=== PATIENT | female | born 1975 | race Caucasian/White ===

== ENCOUNTER → 2023-05-27 | Outpatient (CLI) | payer MEDICAID ==
[2023-05-27 16:32] VITALS: BP 131/89; PULSE 71; TEMP 98; BMI 45.4
--- NOTE | 2023-05-27 17:04 | P.HPBAR ---
Bariatric H&P - History & Physicial H&P Date: 05/27/23 History & Physicial: Visit/CC: new patient Patient initial contact: Initial weight: Initial weight in pounds: Height: 5 ft 4.25 in Initial BMI: Last weight: Current weight: 121.109 kg Current weight in pounds: 267.00 Current BMI: 45.4 [place] body weight (based on NIH guidelines): 54.998 kg Excess body weight loss: The patient is a 48 year-old F who presents for Bariatric Assessment. She has chronic back pain and takes motrin. She is present with her mother. She is looking into gastric bypass for heartburn and reflux. Has hip, knee, ankle. Bilateral feet swelling. She feels fatigued in morning. No prior sleep apnea. No dysphagia. GERD present for over 5 years without improvement with prescription MVI. EGD in past. She has gallbladder gone. Pepcid and carafate. No stomach, esophagus. EGD and colon is advised. Colon screen is due. Past Medical History Past Medical History: Thyroid Disorder Additional Past Medical History / Comment(s): hypothyroid History of Any Multi-Drug Resistant Organisms: None Reported Past Surgical History: Cholecystectomy, Hysterectomy Additional Past Surgical History / Comment(s): laparoscopy Past Anesthesia/Blood Transfusion Reactions: Previous Problems w/ Anesthesia, Motion Sickness Additional Past Anesthesia/Blood Transfusion Reaction / Comm: hypotension and gas pains after laparoscopy, nausea after cholecystectomy Past Psychological History: No Psychological Hx Reported Smoking Status: Never smoker Past Alcohol Use History: Rare Past Drug Use History: None Reported Surgical - Exam Vital Signs Temp Pulse BP 98 F 71 131/89 05/27/23 16:16 05/27/23 16:16 05/27/23 16:16 Bariatric Checklist Checklist: Plan: Checklist: EGD: 1. Hiatal hernia: 2. H. Pylori: HgbA1c: Vitamin D: Smoking: Primary care physician referral: Dr. Herndon Psychiatry clearance: Cardiology clearance: Sleep study: Diet journal: VTE risk score: VTE risk level: Rehab needs at discharge:
== END ==
LOC: BARWHC3 15:12
PROVIDERS: ATTEND Surgery Plastic and Reconstructive Surgery
DX: Z53.9 Procedure and treatment not carried out, unspecified reason (principal)
CPT/HCPCS: 99202

== ENCOUNTER 2023-06-22 07:31 | Day surgery (SDC) | payer MEDICAID ==
--- NOTE | 2023-06-22 05:17 | P.GSHP ---
History of Present Illness H&P Date: 06/22/23 CHIEF COMPLAINT: GERD and colon screen HISTORY OF PRESENT ILLNESS: The patient is a 48-year-old female who presents with gastroesophageal reflux disease and need for colon screen. Upper and lower endoscopy were offered for further evaluation and management. PAST MEDICAL HISTORY: Please see list. PAST SURGICAL HISTORY: Please see list. MEDICATIONS: Please see list. ALLERGIES: Please see list. SOCIAL HISTORY: No illicit drug use FAMILY HISTORY: No reports of Crohn disease or ulcerative colitis. REVIEW OF ORGAN SYSTEMS: CONSTITUTIONAL: No reports of fevers or chills. GI: Denies any blood in stools or constipation. PHYSICAL EXAM: VITAL SIGNS: Stable GENERAL: Well-developed pleasant in no acute distress. HEENT: No scleral icterus. Extraocular movements grossly intact. Moist buccal mucosa. NECK: Supple without lymphadenopathy. CHEST: Unlabored respirations. Equal bilateral excursions. CARDIOVASCULAR: Regular rate and rhythm. Distal 2+ pulses. ABDOMEN: Soft, nondistended. MUSCULOSKELETAL: No clubbing, cyanosis, or edema. ASSESSMENT: 1. Gastroesophageal reflux disease 2. Colon screen. PLAN: 1. Recommend proceeding with an upper and lower endoscopy Past Medical History Past Medical History: COPD, GERD/Reflux, Hyperlipidemia, Thyroid Disorder Additional Past Medical History / Comment(s): hypothyroid, hx of palpitations. has worn holter monitor. chronic back pain. History of Any Multi-Drug Resistant Organisms: None Reported Past Surgical History: Cholecystectomy, Hysterectomy Additional Past Surgical History / Comment(s): laparoscopy, Past Anesthesia/Blood Transfusion Reactions: Previous Problems w/ Anesthesia, Motion Sickness, Postoperative Nausea & Vomiting (PONV) Additional Past Anesthesia/Blood Transfusion Reaction / Comment(s): hypotension and gas pains after laparoscopy, nausea after cholecystectomy Smoking Status: Never smoker - Past Family History Father Family Medical History: CVA/TIA, Diabetes Mellitus, Hypertension Mother Family Medical History: Thyroid Disorder Additional Family Medical History / Comment(s): grandmother uterine and breast cancer Medications and Allergies Home Medications Medication Instructions Recorded Confirmed Type Acetaminophen Tab [Tylenol Tab] 500 mg PO BID 05/27/23 06/19/23 History Aspirin EC [Ecotrin Low Dose] 81 mg PO DAILY 05/27/23 06/19/23 History Aydlett Shield 1 capsule PO DAILY 05/27/23 06/19/23 History Cetirizine HCl [Zyrtec] 10 mg PO DAILY 05/27/23 06/19/23 History Cholecalciferol (Vitamin D3) 300 mcg PO DAILY 05/27/23 06/19/23 History [Vitamin D3 (3000 Iu)] Docusate [Colace] 2 tab PO DAILY 05/27/23 06/19/23 History Famotidine [Pepcid] 20 mg PO BID 05/27/23 06/19/23 History Ibuprofen [Motrin] 600 mg PO BID 05/27/23 06/19/23 History Menofit 2 capsule PO DAILY 05/27/23 06/19/23 History Sucralfate [Carafate] 1 gm PO BID 05/27/23 06/19/23 History Thyroid,Pork [Registered Nurse Maternity Thyroid 120] 150 mg PO DAILY 05/27/23 06/19/23 History Allergies Allergy/AdvReac Type Severity Reaction Status Date / Time adhesive tape Allergy Itching Verified 06/19/23 09:08 latex Allergy Dyspnea Verified 06/19/23 09:08 paroxetine [From Paxil] Allergy muscle Verified 06/19/23 09:08 tetany amoxicillin AdvReac not Verified 06/19/23 09:08 effective oxycodone [From OxyContin] AdvReac Nausea Verified 06/19/23 09:08
[2023-06-22] MEDS: LACTATED RINGERS 1,000 ML IV SCH ×2 (08:11→08:57)
[2023-06-22 08:24] VITALS: RESP 16; TEMP 98.5
[2023-06-22] MEDS ORDERED: PROPOFOL 10 MG/ML 20 ML VIAL IV ONE (08:58)
[2023-06-22] MEDS ORDERED: LIDOCAINE 1% INJ 10MG/ML (20 ML MDV) ONE (08:58)
[2023-06-22] MEDS ORDERED: fentaNYL (PF) 50 MCG/ML 2 ML AMP ONE (08:58)
[2023-06-22] MEDS ORDERED: MIDAZOLAM 2 MG/2 ML VIAL ONE (08:58)
--- NOTE | 2023-06-22 09:22 | P.PCN ---
Date of Procedure: 06/22/23 Description of Procedure: PREOPERATIVE DIAGNOSIS: Gastroesophageal reflux disease. Morbid obesity. POSTOPERATIVE DIAGNOSIS: Gastroesophageal reflux disease. Morbid obesity. Gastritis. Diaphragmatic hiatal hernia OPERATION: Esophagogastroduodenoscopy with biopsies along esophagus, antrum and duodenum SURGEON: Danya Morton MD ANESTHESIA: MAC. INDICATIONS: The patient is a 46-year-old female who presents with reflux disease. Benefits and risks of the procedure were described. Informed consent was obtained. DESCRIPTION: The patient was brought into the endoscopy suite and laid in the left lateral decubitus position. An Olympus gastroscope was passed along the posterior oropharynx down to the distal esophagus where the squamocolumnar junction was encountered at 40 cm from the incisors. The stomach was entered and bile reflux was found. Additional findings are listed below. Biopsies with cold forceps were obtained of the antrum. The first through third portion of the duodenum was examined. Retroflexion of the scope confirmed Hill grade 4 lower esophageal valve. The squamocolumnar junction demonstrated LA grade B erosive esophagitis. The stomach was desufflated. The patient tolerated the procedure well. FINDINGS: Squamocolumnar junction 35 cm from the incisors. Diaphragmatic hiatus at 40 cm. Hiatal hernia, 5 cm, sliding type Hill grade 4 lower esophageal valve. LA grade B erosive esophagitis with biopsies obtained Biopsies obtained of the duodenum. Chronic gastritis with biopsies obtained. Presence of bile reflux RECOMMENDATIONS: Recommend antireflux operation
--- NOTE | 2023-06-22 09:24 | P.PCN ---
Date of Procedure: 06/22/23 Description of Procedure: PREOPERATIVE DIAGNOSIS: Colonoscopy screening. POSTOPERATIVE DIAGNOSIS: Poor prep Chronic constipation OPERATION: Colonoscopy to the rectum Exam under anesthesia, rectum SURGEON: Danya Morton MD. ANESTHESIA: MAC. INDICATIONS: The patient is a 48-year-old female who presents for colonoscopy screening. Benefits and risks were described and informed consent was obtained. DESCRIPTION OF PROCEDURE: The patient had undergone Sutab prep. She had been brought into the operating room and laid in the left lateral decubitus position. After adequate intravenous sedation, the rectum was examined with 2% lidocaine jelly. External hemorrhoids were encountered. The rectal tone was loose. No lesions were palpated in the rectal vault. An Olympus colonoscope was advanced along the rectum. Moderate solid stool was identified obstructive view of the scope. The procedure was d iscontinued. The colon was desufflated. The patient had tolerated the procedure well. Withdrawal time was over 6 minutes. FINDINGS: [place]ch[place] preparation quality scale 5 (1-5) Inconclusive due to poor prep RECOMMENDATIONS: Recommend extended colonoscopy prep, 3 days Plan - Discharge Summary Discharge Rx Participant: No New Discharge Prescriptions: Continue Sucralfate [Carafate] 1 gm PO BID Menofit 2 capsule PO DAILY Ibuprofen [Motrin] 600 mg PO BID Famotidine [Pepcid] 20 mg PO BID Cholecalciferol (Vitamin D3) [Vitamin D3 (3000 Iu)] 300 mcg PO DAILY Cetirizine HCl [Zyrtec] 10 mg PO DAILY Felicia Shield 1 capsule PO DAILY Aspirin EC [Ecotrin Low Dose] 81 mg PO DAILY Thyroid,Pork [Tanbark Laborer Thyroid] 150 mg PO DAILY Acetaminophen Tab [Tylenol] 500 mg PO BID Docusate [Colace] 2 tab PO DAILY Discharge Medication List Acetaminophen Tab [Tylenol] 500 mg PO BID 05/27/23 [History] Aspirin EC [Ecotrin Low Dose] 81 mg PO DAILY 05/27/23 [History] Te[place]y Shield 1 capsule PO DAILY 05/27/23 [History] Cetirizine HCl [Zyrtec] 10 mg PO DAILY 05/27/23 [History] Cholecalciferol (Vitamin D3) [Vitamin D3 (3000 Iu)] 300 mcg PO DAILY 05/27/23 [History] Docusate [Colace] 2 tab PO DAILY 05/27/23 [History] Famotidine [Pepcid] 20 mg PO BID 05/27/23 [History] Ibuprofen [Motrin] 600 mg PO BID 05/27/23 [History] Menofit 2 capsule PO DAILY 05/27/23 [History] Sucralfate [Carafate] 1 gm PO BID 05/27/23 [History] Thyroid,Pork [Tanbark Laborer Thyroid] 150 mg PO DAILY 05/27/23 [History] Follow up [facility]ment(s[facility] [place] [facility] - [facility] Patient Instructions/Handouts: Hiatal Hernia (GEN), Constipation (ED) Activity/Diet/Wound Care/Special Instructions: Recommend colonoscopy Discharge Disposition: HOME SELF-CARE
[2023-06-22] MEDS ORDERED: ALBUTEROL NEBULIZED 2.5 MG/3 ML INHALATION ONE (09:35)
[2023-06-22 10:03] VITALS: BP 121/61; PULSE 70
== END 2023-06-22 10:51 | disposition home or self-care (01) ==
LOC: ORWHC2ENDO 07:31
PROVIDERS: ATTEND Surgery Plastic and Reconstructive Surgery
DX: Z12.11 Encounter for screening for malignant neoplasm of colon (principal); K29.50 Unspecified chronic gastritis without bleeding; K21.00 Gastro-esophageal reflux disease with esophagitis, without bleeding; K59.09 Other constipation; K64.4 Residual hemorrhoidal skin tags; E66.01 Morbid (severe) obesity due to excess calories; K44.9 Diaphragmatic hernia without obstruction or gangrene; J44.9 Chronic obstructive pulmonary disease, unspecified; E78.5 Hyperlipidemia, unspecified; E03.9 Hypothyroidism, unspecified; G89.29 Other chronic pain; Z90.49 Acquired absence of other specified parts of digestive tract; Z90.710 Acquired absence of both cervix and uterus; Z82.3 Family history of stroke; Z83.3 Family history of diabetes mellitus; Z82.49 Family history of ischemic heart disease and other diseases of the circulatory system; Z80.3 Family history of malignant neoplasm of breast; Z83.49 Family history of other endocrine, nutritional and metabolic diseases; Z79.82 Long term (current) use of aspirin; Z79.890 Hormone replacement therapy; Z91.040 Latex allergy status; Z91.048 Other nonmedicinal substance allergy status; Z88.0 Allergy status to penicillin; Z88.5 Allergy status to narcotic agent; Z79.899 Other long term (current) drug therapy
CPT/HCPCS: 88305; 88342; 43239; G0121; J2250; J2001; J3010; J2704

== ENCOUNTER → 2023-06-22 | Outpatient (CLI) | payer MEDICAID ==
[2023-06-22 12:21] LABS: INR 0.9 (<1.2); Partial Thromboplastin Time 25.3 sec (22.0-30.0); Prothrombin Time 10.3 sec (10.0-12.5)
[2023-06-22 15:51] LABS: HCT 38.2 % (37.2-46.3); HGB 12.4 g/dL (12.0-15.0); MCH 29.1 pg (27.0-32.0); MCHC 32.5 g/dL (32.0-37.0); MCV 89.7 FL (80.0-97.0); Mean Platelet Volume 9.4 FL (9.5-12.2); NRBC Per 100 WBC 0 X 10*3/uL (0.00-0.01); Platelet Count 278 X 10*3/uL (140-440); RBC 4.26 X 10*6/uL (4.10-5.20); RDW 12.6 % (11.5-14.5); WBC 3.74 X 10*3/uL (4.50-10.00)
[2023-06-22 17:04] LABS: Prealbumin 22.3 mg/dL (18.0-42.0)
[2023-06-22 17:24] LABS: % Iron Saturation 15.12 (12.00-45.00); ALT 37 U/L (8-44); AST 24 U/L (13-35); Albumin 4.4 g/dL (3.8-4.9); Albumin/Globulin Ratio 1.76 Ratio (1.60-3.17); Alkaline Phosphatase 107 U/L (41-126); BUN/Creat Ratio 13.43 Ratio (12.00-20.00); Blood Urea Nitrogen 9.4 mg/dL (9.0-27.0); Calcium 10.1 mg/dL (8.7-10.3); Carbon Dioxide 24.6 mmol/L (21.6-31.8); Chloride 107 mmol/L (96-109); Chol/HDL Ratio 3.84 Ratio; Ferritin 74.9 ng/mL (10.0-291.0); Globulin 2.5 g/dL (1.6-3.3); Glucose 108 mg/dL (70-110); Iron 52 UG/DL (50-170); LDL Cholesterol,Calculated 119.1 mg/dL (0.0-131.0); Phosphorus 3.6 mg/dL (2.4-5.1); Sodium 144 mmol/L (135-145); Total Bilirubin <0.2 mg/dL (0.3-1.2); Total Iron Binding Capacity 344 UG/DL (228-460); Total Protein 6.9 g/dL (6.2-8.2)
[2023-06-23 10:43] LABS: Zinc, Serum 90 ug/dL (60-130)
[2023-06-24 08:00] LABS: Vitamin A 46 ug/dL (38-106)
== END | disposition home or self-care (01) ==
LOC: LABWHC1 10:49
PROVIDERS: ATTEND Surgery Plastic and Reconstructive Surgery
DX: E66.01 Morbid (severe) obesity due to excess calories (principal); E89.1 Postprocedural hypoinsulinemia; D50.8 Other iron deficiency anemias; E44.0 Moderate protein-calorie malnutrition; E55.9 Vitamin D deficiency, unspecified; Z71.51 Drug abuse counseling and surveillance of drug abuser; K91.2 Postsurgical malabsorption, not elsewhere classified; E44.1 Mild protein-calorie malnutrition; E45 Retarded development following protein-calorie malnutrition; E46 Unspecified protein-calorie malnutrition; K74.1 Hepatic sclerosis; N19 Unspecified kidney failure; T56.894A Toxic effect of other metals, undetermined, initial encounter; K50.90 Crohn's disease, unspecified, without complications
CPT/HCPCS: 36415; 80053; 80061; 80307; 80323; 82306; 82525; 82607; 82728; 82746; 83036; 83540; 83550; 83735; 83970; 84100; 84134; 84255; 84425; 84443; 84590; 84630; 85027; 85610; 85730; 93005

== ENCOUNTER → 2023-07-08 | Outpatient (CLI) | payer MEDICAID ==
[2023-07-08 14:17] VITALS: BP 125/85; PULSE 72; TEMP 97.8; BMI 45.8
--- NOTE | 2023-07-08 14:36 | P.BASOAP ---
Subjective Progress Note Date: 07/08/23 DATE OF SERVICE: 07/08/23 CHIEF COMPLAINT: Morbid obesity HISTORY OF PRESENT ILLNESS: Claudia Alonso is a 48-year-old female who comes with lifelong morbid obesity. She comes in looking into the gastric bypass. She has severe reflux disease. She has prior hysterectomy. She wants the bypass. She is short of breath with walking a flight of stairs. EKG is normal. She does not want the sleeve. She reports severe constipation including irritable bowel syndrome. She takes daily stool softeners. She reports intermittent gastrointestinal distention and bloating. Attempted colonoscopy was discontinued due to poor bowel prep. At height of 5 feet 4.25 inches, her ideal body weight is 144 pounds. She comes in 269 pounds from 266 pounds. She has gained 3 pounds in 2 months. Her body mass index is 45.8. She is 125 pounds overweight. PAST MEDICAL HISTORY: 1. Morbid obesity due to excess calories 2. Body mass index of 45.4 3. Osteoarthritis of the knees. 4. Chronic obstructive pulmonary disease 5. Gastroesophageal reflux disease 6. Hyperlipidemia 7. Hypothyroidism 8. Osteoarthritis of the lower back. 9. Postoperative nausea PAST SURGICAL HISTORY: 1. Cholecystectomy 2. Hysterectomy HOME MEDICATIONS: Home Medications Medication Instructions Recorded Confirmed Acetaminophen Tab [Tylenol] 500 mg PO BID 05/27/23 07/08/23 Aspirin EC [Ecotrin Low Dose] 81 mg PO DAILY 05/27/23 07/08/23 Cetirizine HCl [Zyrtec] 10 mg PO DAILY 05/27/23 07/08/23 Cholecalciferol (Vitamin D3) 300 mcg PO DAILY 05/27/23 07/08/23 [Vitamin D3 (3000 Iu)] Docusate [Colace] 2 tab PO DAILY 05/27/23 07/08/23 Famotidine [Pepcid] 20 mg PO BID 05/27/23 07/08/23 Ibuprofen [Motrin] 600 mg PO BID 05/27/23 07/08/23 Menofit 2 capsule PO DAILY 05/27/23 07/08/23 Sucralfate [Carafate] 1 gm PO BID 05/27/23 07/08/23 Thyroid,Pork [Terminal Operator Thyroid] 150 mg PO DAILY 05/27/23 07/08/23 Previous Rx's Medication Instructions Recorded Lactulose [Cephulac] 20 gm PO DAILY #480 ml 07/08/23 ALLERGIES: Allergies Allergy/AdvReac Type Severity Reaction Status Date / Time adhesive tape Allergy Itching Verified 06/22/23 07:48 latex Allergy Dyspnea Verified 06/22/23 07:48 paroxetine [From Paxil] Allergy muscle Verified 06/22/23 07:48 tetany amoxicillin AdvReac not Verified 06/22/23 07:48 effective oxycodone [From OxyContin] AdvReac Nausea Verified 06/22/23 07:48 SOCIAL HISTORY:No past tobacco use. FAMILY HISTORY: No family history of ulcerative colitis disease or Crohn's disease. Family history of morbid obesity. No lupus in the family. No reports of stomach or esophageal cancer. REVIEW OF ORGAN SYSTEMS: CONSTITUTIONAL: At height of 5 feet 4.25 inches, her ideal body weight is 144 pounds. She comes in 269 pounds from 266 pounds. She has gained 3 pounds in 2 months. Her body mass index is 45.8. She is 125 pounds overweight. HEENT: Denies any active troubles with vision or hearing. ENDOCRINE: Denies diabetes. Has hypothyroidism. CARDIOVASCULAR: Past reports of palpitations or heart attacks or chest pain. Has hypertensive heart disease. RESPIRATORY: Has daytime somnolence. Has asthma. Has chronic obstructive pulmonary disease. GASTROINTESTINAL: Denies any bright red blood per rectum. No diarrhea. Has constipation. Has gastroesophageal reflux disease. GENITOURINARY: Denies bladder urgency. No recent blood in urine MUSCULOSKELETAL: Has lower back pain and joint pain. Has osteoarthritis of the knees. History of bilateral lower extremity edema. NEURO: No headaches. No seizure disorders. Has neuropathy. PSYCH: Denies depression. No suicidal ideation. RHEUMATOLOGIC: No lupus. No rheumatoid arthritis. HEMATOLOGIC: Denies any abnormal bleeding or bruising. Denies past history of DVTs. SKIN: No rash. No skin cancer. PHYSICAL EXAM: VITAL SIGNS: Height 5 foot 3.75 inches, weight 219 pounds. BMI 38.0 GENERAL: Well-developed in no acute distress. HEENT: No scleral icterus. Extraocular movements grossly intact. Hears conversational speech. No nasal drainage. NECK: Supple without lymphadenopathy. CHEST: Nonlabored respirations with equal bilateral excursions. CARDIOVASCULAR: Regular rate and regular rhythm. Distal 2+ pulses. ABDOMEN: Obese, soft, nontender, nondistended. MUSCULOSKELETAL: No clubbing, cyanosis. Gross strength 5/5 distal lower extremities. NEURO: No focal or lateralizing signs. Cranial nerves 2 through 12 grossly w ithin normal limits. PSYCH: Appropriate affect. Alert and oriented to person, place and time. SKIN: Good skin turgor. Well perfused. Labs: Reviewed 06/22/2023. No vitamin deficiencies. Hemoglobin A1c 5.6%, normal. Urine drug screen positive for Midazolam EKG: normal sinus rhythm COLON FINDINGS: Aronchik preparation quality scale 5 (1-5) Inconclusive due to poor prep EGD FINDINGS: Squamocolumnar junction 35 cm from the incisors. Diaphragmatic hiatus at 40 cm. Hiatal hernia, 5 cm, sliding type Hill grade 4 lower esophageal valve. LA grade B erosive esophagitis with biopsies obtained Biopsies obtained of the duodenum. Chronic gastritis with biopsies obtained. Presence of bile reflux Final Pathologic Diagnosis A. DUODENUM, BIOPSY: Benign small bowel mucosa with intact villous architecture, negative for histopathologic abnormality. B. GASTRIC ANTRUM, BIOPSY: Chronic gastritis with mild activity. Helicobacter pylori immunostain is negative for H. pylori organisms (control appropriate). C. ESOPHAGUS, BIOPSY: Mild chronic esophagitis. Intramucosal eosinophils are not identified. ASSESSMENT: 1. Morbid obesity due to excess calories 2. Body mass index of 45.4 3. Osteoarthritis of the knees. 4. Chronic obstructive pulmonary disease 5. Gastroesophageal reflux disease 6. Hyperlipidemia 7. Hypothyroidism 8. Osteoarthritis of the lower back. 9. Postoperative nausea 10. Diaphragmatic hiatal hernia with esophagitis 11. Chronic gastritis 12. Chronic constipation PLAN: 1. She has severe reflux disease with hiatal hernia uncontrolled medications. Recommend diaphragmatic hiatal hernia repair, robotic-assisted approach. 2. She has pre-existing history of hysterectomy which increases her risk for pelvic adhesions. Gastric bypass is elevated risk for bowel obstruction. Recommend lysis of adhesions prior to gastric bypass. 3. May benefit from second opinion if she desires regarding gastric bypass and hiatal hernia repair. 4. She has severe constipation and lactulose prescribed. Recommend repeat attempted colonoscopy didn't poor prep, nondiagnostic. 5. She is at risk for complications were hiatal hernia repair due to elevated BMI and pulmonary disease Objective - Vital Signs Vital signs: Vital Signs Temp 97.8 F 07/08/23 13:59 Pulse 72 07/08/23 13:59 Resp BP 125/85 07/08/23 13:59 Pulse Ox FiO2 Intake & Output 07/07/23 07/08/23 07/08/23 18:59 06:59 18:59 Weight 122.016 kg Assessment/Plan Plan: Date: 07/08/23 Initial Weight: Initial BMI: Current Weight: 122.016 kg Current BMI: 45.8 Type of Surgery: Total Volume in Band: Previous Volume: Volume Removed: Volume Added: Band Size:
== END ==
LOC: BARWHC3 13:16
PROVIDERS: ATTEND Surgery Plastic and Reconstructive Surgery
DX: E66.01 Morbid (severe) obesity due to excess calories (principal); M17.0 Bilateral primary osteoarthritis of knee; J44.9 Chronic obstructive pulmonary disease, unspecified; K21.9 Gastro-esophageal reflux disease without esophagitis; E78.5 Hyperlipidemia, unspecified; E03.9 Hypothyroidism, unspecified; M47.816 Spondylosis without myelopathy or radiculopathy, lumbar region; R11.0 Nausea; K29.70 Gastritis, unspecified, without bleeding; K44.9 Diaphragmatic hernia without obstruction or gangrene; K20.90 Esophagitis, unspecified without bleeding; K59.00 Constipation, unspecified; Z68.42 Body mass index [BMI] 45.0-49.9, adult; Z90.710 Acquired absence of both cervix and uterus; Z90.49 Acquired absence of other specified parts of digestive tract; Z88.0 Allergy status to penicillin; Z88.5 Allergy status to narcotic agent; Z91.048 Other nonmedicinal substance allergy status; Z91.040 Latex allergy status; Z88.6 Allergy status to analgesic agent; Z79.890 Hormone replacement therapy
CPT/HCPCS: 99211

== ENCOUNTER → 2023-07-13 | Outpatient (CLI) | payer MEDICAID ==
[2023-07-13 13:34] VITALS: BMI 46.0
== END ==
LOC: BARWHC3 12:18
PROVIDERS: ATTEND Surgery Plastic and Reconstructive Surgery
DX: E66.01 Morbid (severe) obesity due to excess calories (principal); Z71.3 Dietary counseling and surveillance; Z68.42 Body mass index [BMI] 45.0-49.9, adult; Z91.048 Other nonmedicinal substance allergy status; Z91.040 Latex allergy status; Z88.0 Allergy status to penicillin; Z88.5 Allergy status to narcotic agent; Z88.8 Allergy status to other drugs, medicaments and biological substances
CPT/HCPCS: 97804; 99211

== ENCOUNTER → 2023-09-21 | Outpatient (CLI) | payer MEDICAID ==
[2023-09-21 15:08] LABS: Basophils # (A) 0.05 X 10*3/uL (0.00-0.10); Basophils % (A) 1.6 %; Eosinophils # (A) 0.08 X 10*3/uL (0.04-0.35); Eosinophils % (A) 2.5 %; HCT 38.7 % (37.2-46.3); Lymphocytes % (A) 37.3 %; MCHC 33.6 g/dL (32.0-37.0); MCV 86.4 FL (80.0-97.0); Mean Platelet Volume 9.7 FL (9.5-12.2); Monocytes # (A) 0.35 X 10*3/uL (0.20-1.00); Monocytes % (A) 10.9 %; NRBC Per 100 WBC 0 X 10*3/uL (0.00-0.01); Neutrophils # (A) 1.53 X 10*3/uL (1.80-7.70); Neutrophils % (A) 47.4 %; Platelet Count 276 X 10*3/uL (140-440); RBC 4.48 X 10*6/uL (4.10-5.20); WBC 3.22 X 10*3/uL (4.50-10.00)
[2023-09-21 15:38] LABS: BUN/Creat Ratio 29.14 Ratio (12.00-20.00); Blood Urea Nitrogen 20.4 mg/dL (9.0-27.0); Carbon Dioxide 23.9 mmol/L (21.6-31.8); Chloride 106 mmol/L (96-109); Glucose 90 mg/dL (70-110); Potassium 4.1 mmol/L (3.5-5.5); Sodium 142 mmol/L (135-145)
[2023-09-21 15:39] LABS: ALT 53 U/L (8-44); AST 33 U/L (13-35); Albumin 4.5 g/dL (3.8-4.9); Albumin/Globulin Ratio 1.73 Ratio (1.60-3.17); Alkaline Phosphatase 104 U/L (41-126); Globulin 2.6 g/dL (1.6-3.3); Total Bilirubin 0.2 mg/dL (0.3-1.2); Total Protein 7.1 g/dL (6.2-8.2)
== END | disposition home or self-care (01) ==
LOC: LABPAT 11:11
PROVIDERS: ATTEND Surgery Plastic and Reconstructive Surgery
DX: Z01.812 Encounter for preprocedural laboratory examination (principal)
CPT/HCPCS: 36415; 80053; 85025; 86850; 86900; 86901

== ENCOUNTER 2023-09-28 09:20 | Inpatient (IN) | payer MEDICAID ==
--- NOTE | 2023-09-28 08:45 | P.GSHP ---
History of Present Illness H&P Date: 09/28/23 CHIEF COMPLAINT: Gastroesophageal reflux disease HISTORY OF PRESENT ILLNESS: Claudia Alonso is a 48-year-old female who comes with lifelong morbid obesity. Patient with uncontrolled gastroesophageal reflux disease and has a hiatal hernia. Symptoms have been ongoing for over 6 months. At height of 5 feet 4.25 inches, her ideal body weight is 144 pounds. She comes in 269 pounds from 266 pounds. She has gained 3 pounds in 2 months. Her body mass index is 45.8. She is 125 pounds overweight. PAST MEDICAL HISTORY: 1. Morbid obesity due to excess calories 2. Body mass index of 45.4 3. Osteoarthritis of the knees. 4. Chronic obstructive pulmonary disease 5. Gastroesophageal reflux disease 6. Hyperlipidemia 7. Hypothyroidism 8. Osteoarthritis of the lower back. 9. Postoperative nausea PAST SURGICAL HISTORY: 1. Cholecystectomy 2. Hysterectomy HOME MEDICATIONS: Home Medications Medication Instructions Recorded Confirmed Acetaminophen Tab [Tylenol] 500 mg PO BID 05/27/23 07/08/23 Aspirin EC [Ecotrin Low Dose] 81 mg PO DAILY 05/27/23 07/08/23 Cetirizine HCl [Zyrtec] 10 mg PO DAILY 05/27/23 07/08/23 Cholecalciferol (Vitamin D3) 300 mcg PO DAILY 05/27/23 07/08/23 [Vitamin D3 (3000 Iu)] Docusate [Colace] 2 tab PO DAILY 05/27/23 07/08/23 Famotidine [Pepcid] 20 mg PO BID 05/27/23 07/08/23 Ibuprofen [Motrin] 600 mg PO BID 05/27/23 07/08/23 Menofit 2 capsule PO DAILY 05/27/23 07/08/23 Sucralfate [Carafate] 1 gm PO BID 05/27/23 07/08/23 Thyroid,Pork [Supply Chain Technician Thyroid] 150 mg PO DAILY 05/27/23 07/08/23 Previous Rx's Medication Instructions Recorded Lactulose [Cephulac] 20 gm PO DAILY #480 ml 07/08/23 ALLERGIES: Allergies Allergy/AdvReac Type Severity Reaction Status Date / Time adhesive tape Allergy Itching Verified 06/22/23 07:48 latex Allergy Dyspnea Verified 06/22/23 07:48 paroxetine [From Paxil] Allergy muscle Verified 06/22/23 07:48 tetany amoxicillin AdvReac not Verified 06/22/23 07:48 effective oxycodone [From OxyContin] AdvReac Nausea Verified 06/22/23 07:48 SOCIAL HISTORY:No past tobacco use. FAMILY HISTORY: No family history of ulcerative colitis disease or Crohn's disease. Family history of morbid obesity. No lupus in the family. No reports of stomach or esophageal cancer. REVIEW OF ORGAN SYSTEMS: CONSTITUTIONAL: At height of 5 feet 4.25 inches, her ideal body weight is 144 pounds. She comes in 269 pounds from 266 pounds. She has gained 3 pounds in 2 months. Her body mass index is 45.8. She is 125 pounds overweight. HEENT: Denies any active troubles with vision or hearing. ENDOCRINE: Denies diabetes. Has hypothyroidism. CARDIOVASCULAR: Past reports of palpitations or heart attacks or chest pain. Has hypertensive heart disease. RESPIRATORY: Has daytime somnolence. Has asthma. Has chronic obstructive pulmonary disease. GASTROINTESTINAL: Denies any bright red blood per rectum. No diarrhea. Has constipation. Has gastroesophageal reflux disease. GENITOURINARY: Denies bladder urgency. No recent blood in urine MUSCULOSKELETAL: Has lower back pain and joint pain. Has osteoarthritis of the knees. History of bilateral lower extremity edema. NEURO: No headaches. No seizure disorders. Has neuropathy. PSYCH: Denies depression. No suicidal ideation. RHEUMATOLOGIC: No lupus. No rheumatoid arthritis. HEMATOLOGIC: Denies any abnormal bleeding or bruising. Denies past history of DVTs. SKIN: No rash. No skin cancer. PHYSICAL EXAM: VITAL SIGNS: Height 5 foot 4 inches, weight 269 pounds. BMI 45.0 GENERAL: Well-developed in no acute distress. HEENT: No scleral icterus. Extraocular movements grossly intact. Hears conversational speech. No nasal drainage. NECK: Supple without lymphadenopathy. CHEST: Nonlabored respirations with equal bilateral excursions. CARDIOVASCULAR: Regular rate and regular rhythm. Distal 2+ pulses. ABDOMEN: Obese, soft, nontender, nondistended. MUSCULOSKELETAL: No clubbing, cyanosis. NEURO: No focal or lateralizing signs. Cranial nerves 2 through 12 grossly within normal limits. PSYCH: Appropriate affect. Alert and oriented to person, place and time. SKIN: Good skin turgor. Well perfused. ASSESSMENT: 1. Morbid obesity due to excess calories 2. Body mass index of 45.4 3. Osteoarthritis of the knees. 4. Chronic obstructive pulmonary disease 5. Gastroesophageal reflux disease 6. Hyperlipidemia 7. Hypothyroidism 8. Osteoarthritis of the lower back. 9. Postoperative nausea 10. Diaphragmatic hiatal hernia with esophagitis 11. Chronic gastritis 12. Chronic constipation PLAN: 1. She has severe reflux disease with hiatal hernia uncontrolled medications. Recommend diaphragmatic hiatal hernia repair, robotic-assisted approach. 2. She has pre-existing history of hysterectomy which increases her risk for pelvic adhesions. Gastric bypass is elevated risk for bowel obstruction. Recommend lysis of adhesions prior to gastric bypass. 3. She is at risk for complications were hiatal hernia repair due to elevated BMI and pulmonary disease 4. In-patient hospitalization described Past Medical History Past Medical History: COPD, GERD/Reflux, Hyperlipidemia, Thyroid Disorder Additional Past Medical History / Comment(s): hypothyroid, hx of palpitations related to thyroid issues, has worn holter monitor. chronic back pain. intermittent yeast like rash groin area @times History of Any Multi-Drug Resistant Organisms: None Reported Past Surgical History: Cholecystectomy, Hysterectomy Additional Past Surgical History / Comment(s): laparoscopy, recent EGD Past Anesthesia/Blood Transfusion Reactions: Previous Problems w/ Anesthesia, Motion Sickness, Postoperative Nausea & Vomiting (PONV) Additional Past Anesthesia/Blood Transfusion Reaction / Comment(s): hypotension and gas pains after laparoscopy, nausea after cholecystectomy, needed breathing tx after recent EGD Smoking Status: Never smoker - Past Family History Father Family Medical History: CVA/TIA, Diabetes Mellitus, Hypertension Mother Family Medical History: Thyroid Disorder Additional Family Medical History / Comment(s): grandmother uterine and breast cancer Medications and Allergies Home Medications Medication Instructions Recorded Confirmed Type Acetaminophen Tab [Tylenol] 500 mg PO BID 05/27/23 09/23/23 History Aspirin EC [Ecotrin Low Dose] 81 mg PO DAILY 05/27/23 09/23/23 History Cetirizine HCl [Zyrtec] 10 mg PO DAILY 05/27/23 09/23/23 History Cholecalciferol (Vitamin D3) 10,000 unit PO DAILY 05/27/23 09/23/23 History [Vitamin D3 (3000 Iu)] Docusate [Colace] 2 tab PO DAILY PRN 05/27/23 09/23/23 History Famotidine [Pepcid] 20 mg PO BID 05/27/23 09/23/23 History Ibuprofen [Motrin] 600 mg PO BID 05/27/23 09/23/23 History Menofit 2 capsule PO DAILY 05/27/23 09/23/23 History Sucralfate [Carafate] 1 gm PO BID 05/27/23 09/23/23 History Thyroid,Pork [Supply Chain Technician Thyroid] 150 mg PO DAILY 05/27/23 09/23/23 History Albuterol Inhaler [Ventolin Hfa 1 - 2 puff INHALATION Q6H PRN 09/23/23 09/23/23 History Inhaler] Felicia Shield Estrogen Support 1 tab PO DAILY PRN 09/23/23 History Lactulose [Cephulac] 20 gm PO DAILY PRN 09/23/23 09/23/23 History Allergies Allergy/AdvReac Type Severity Reaction Status Date / Time adhesive tape Allergy Itching Verified 09/23/23 09:01 latex Allergy Dyspnea Verified 09/23/23 09:01 paroxetine [From Paxil] Allergy muscle Verified 09/23/23 09:01 tetany amoxicillin AdvReac not Verified 09/23/23 09:01 effective oxycodone [From OxyContin] AdvReac Nausea Verified 09/23/23 09:01
[~2023-09-28 09:20] MED LIST: HYDROmorphone 0.5 MG/0.5 ML SYRINGE IVP PRN; LIDOCAINE 1% (10MG/ML) FOR IV START INTRADERMA PRN; MIDAZOLAM 2 MG/2 ML VIAL IV PRN
[2023-09-28] MEDS: LACTATED RINGERS 1,000 ML IV SCH (10:07)
[2023-09-28] MEDS: HEPARIN SODIUM,PORCINE 5,000 UNIT/ML 1 ML VIAL SQ PRN (10:15)
[2023-09-28] MEDS: ONDANSETRON 4 MG/2 ML VIAL IVP PRN (10:15)
[2023-09-28] MEDS: DEXAMETHASONE SOD PHOSPHATE 4 MG/ML 1 ML VIAL IV ONE (10:15)
[2023-09-28] MEDS: ACETAMINOPHEN TAB 500 MG TAB PO PRN (10:15)
[2023-09-28] MEDS: SCOPOLAMINE 1 MG/72 HR PATCH TRANSDERM STA (10:20)
[2023-09-28] MEDS: CHLORHEXIDINE GLUCONATE 15 ML CUP MUCOUS MEM STA (10:20)
[2023-09-28] MEDS: PANTOPRAZOLE 40 MG/10 ML VIAL IVP STA (10:20)
[2023-09-28] MEDS ORDERED: diphenhydrAMINE 50 MG/ML 1 ML VIAL ONE (10:30)
[2023-09-28] MEDS ORDERED: IPRATROPIUM-ALBUTEROL 3 ML NEB ONE (10:30)
[2023-09-28] MEDS: diphenhydrAMINE 50 MG/ML 1 ML VIAL IVP ONE (11:40)
[2023-09-28] MEDS: IPRATROPIUM-ALBUTEROL 3 ML NEB INHALATION STA (11:40)
[2023-09-28] MEDS ORDERED: NEOSTIGMINE 1 MG/ML 10 ML VIAL ONE (12:11)
[2023-09-28] MEDS ORDERED: fentaNYL (PF) 50 MCG/ML 2 ML AMP ONE (12:11)
[2023-09-28] MEDS ORDERED: MIDAZOLAM 2 MG/2 ML VIAL ONE (12:11)
[2023-09-28] MEDS ORDERED: LIDOCAINE 1% INJ 10MG/ML (20 ML MDV) ONE (12:11)
[2023-09-28] MEDS ORDERED: GLYCOPYRROLATE 0.2 MG/ML 2 ML VIAL ONE (12:11)
[2023-09-28] MEDS ORDERED: PROPOFOL 10 MG/ML 20 ML VIAL IV ONE (12:11)
[2023-09-28] MEDS ORDERED: HYDROmorphone (PF) 1 MG/ML ONE (12:11)
[2023-09-28] MEDS ORDERED: SUCCINYLCHOLINE CHLORIDE 200 MG/10 ML VIAL IV ONE (12:11)
[2023-09-28] MEDS ORDERED: ROCURONIUM 10 MG/ML (5 ML VIAL) IV ONE (12:11)
[2023-09-28] MEDS: LIDOCAINE 2%-EPI 1:100,000 20 ML VIAL SQ ONE (12:38)
--- NOTE | 2023-09-28 14:13 | P.OP ---
Date of Procedure: 09/28/23 Description of Procedure: SURGEON: PAVITHRA FRANK MD PREOPERATIVE DIAGNOSES: 1. Gastroesophageal reflux disease. 2. Morbid obesity due to excess calories, BMI 44.6 POSTOPERATIVE DIAGNOSES: 1. Gastroesophageal reflux disease. 2. Morbid obesity due to excess calories, BMI 44.6 OPERATION: 1. Robotic-assisted da Meghan Xi laparoscopic reduction and repair of incarcerated paraesophageal hiatal hernia, 4 x 3 cm, with [place] Biopatch A 8 x 8 cm. 2. Intraoperative esophagogastroduodenoscopy ANESTHESIA: General with local anesthetic. ESTIMATED BLOOD LOSS: 20 mL SPECIMENS REMOVED: None. COMPLICATIONS: None. FINDINGS: 1. Moderate gastric content within the esophagus consistent with gastroesophageal reflux disease, prior to repair 2. No esophageal dysmotility 3. 4 x 4 cm paraesophageal incarcerated diaphragmatic hiatal hernia with dissection into the mediastinum. 4. Intra-abdominal esophageal length over 3 cm obtained 5. [place] Biopatch A onlay mesh placed. INDICATIONS: The patient is a 48-year-old female who presents with regurgitation, gastroesophageal reflux disease and a symptomatic diaphragmatic hiatal hernia. Preoperative workup including upper endoscopy demonstrated a Hill grade 4 lower esophageal valve. She completed an esophageal manometry. Given the severity of her symptoms, particularly of her symptomatic diaphragmatic hiatal hernia, she had elected for surgical intervention. Benefits and risks including bleeding, infection, recurrence, dysphagia, injury to the lung, need for further surgery was described at length. Informed consent was obtained. DESCRIPTION: The patient was brought into the operating room and placed in supine position. Preoperatively she had received Heparin subcutaneously for DVT prophylaxis. After general induction, the abdomen was prepped and draped in standard sterile fashion. The patient had previously voided prior to coming to the operating room. Ioban draping was placed along the abdomen. A timeout protocol was confirmed with the surgical team, for which the patient's name, procedure to be performed including DVT prophylaxis with bilateral SCDs, and preoperative antibiotics were also confirmed. A robotic da Meghan Xi system was prepped and primed. At 10 cm from the xiphoid to just below the umbilicus, proposed port sites were marked with indelible marker along the left axillary line, left mid-clavicular line with each ports were marked 10 cm from each other. A 5 mm 0 degrees laparoscopic trocar entry was performed along the left upper quadrant. The abdomen was insufflated to 15 mmHg pressure she tolerated well. Diagnostic laparoscopy demonstrated no injury to bowel, viscera, or mesentery. The liver surface was unremarkable. No injury had occurred to the small bowel or viscera. Along the hiatus, a defect was found anteriorly. 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 Next, one 8 mm robotic port was placed along the right upper abdomen. An 8-mm port was were placed along the left lateral abdominal wall. The camera 8-mm port was maintained along the epigastrium via the hernia defect. Another 12 mm port was placed along the left upper abdominal wall after exchanging the 5 mm port. Please note that the ports were placed at least 20 cm away from the target anatomy. Care was taken to check that each robotic arm were safely away from collision with the bed or the patient. At the epigastrium, a median sized Behzad liver retractor was placed under direct visualization with the Iron Measurement Superintendent placed over the right shoulder of the patient. The additional third robotic arm was placed along the left aspect of the patient. The patient was repositioned in reverse Trendelenburg position at 14-degrees after lowering the bed. The robot was docked above the left side of the patient. Using a grasper for arm 3, a grasper for arm 1, including vessel sealer for arm 2, the robotic system was docked and primed as described. Instruments were interchanged by the baking assistant. I had sat at the console. The gastrohepatic ligament was cleaved using a vessel sealer. Next, the phrenoesophageal ligament was mobilized and the distal esophagus was mobilized circumferentially with care of to the bilateral vagi nerves. The left and right crura was identified. A midline large hiatal hernia and sac was found. Circumferentially, the hernia sac was excised and brought into the peritoneal cavity. Care was taken to avoid any gastrotomy to the upper pole of the stomach. The measured defect was consistent with 4 cm axial length and 4 cm in width. The distal esophagus at least 3 cm was brought into the abdominal cavity. Once the hiatus and crura was dissected, 2-0 VLOC suture was placed initially with a [id number] suture to reapproximate the diaphragmatic hiatus posteriorly. To buttress the repair, a [place] Biopatch A was prepared along the back table as to reinforce the repair as an underlay. The mesh was placed along the crural repair and tagged using horizontal mattress sutures using 2-0 VLOC. I went to the head of the bed to perform intraoperative esophagogastroduodenoscopy. A 56-[place] bougie was carefully placed along the posterior oropharynx through the hiatus and then removed. An Olympus gastroscope was passed through posterior oropharynx, where the GE junction was found distal to the diaphragmatic hiatus. The intra-abdominal esophageal length obtained during the case was over 3 cm. The stomach was entered. Retroflexion of the scope confirmed a Hill grade 1 lower esophageal valve. Duodenal ulcers along the first portion of duodenum was confirmed without bleeding. The stomach had been desufflated. No evidence of leaks were found either of the mucosal defects of the esophagus or stomach. The hiatal closure was consistent with a 56 [place] bougie as a bougie was passed. This concluded the endoscopic portion of the case. The robot was undocked from the patient. I re-scrubbed into the case. All instruments and pneumoperitoneum were evacuated from the abdominal cavity. Incisions were reapproximated using 4-0 Monocryl in an interrupted subcuticular fashion. Liquid glue was applied to the skin. Local anesthetic was infiltrated in all wounds for postop analgesia. Multiple intra-abdominal films were obtained. At the end of the procedure, needle, sponge, and instrument count was verified correct by the can technician. The patient had tolerated the procedure well and was taken to the postanesthesia unit in stable condition. Intraoperative films were reviewed with the patient's family who was pleased with the level of care. Console time 17 minutes
[2023-09-28] MEDS: HYDROmorphone 0.5 MG/0.5 ML SYRINGE IVP ONE (17:23)
[2023-09-28] MEDS: droPERidol 5 MG/2 ML VIAL IVP ONE (18:25)
[2023-09-28] MEDS: ONDANSETRON 4 MG/2 ML VIAL IVP ONE (18:25)
[2023-09-28] MEDS: DEXAMETHASONE SOD PHOSPHATE 10 MG/ML 1 ML VIAL IVP STA (18:26)
[2023-09-28] MEDS: KETOROLAC 15 MG/ML 1 ML VIAL IVP SCH (20:07)
[2023-09-28] MEDS: DEXAMETHASONE SOD PHOSPHATE 4 MG/ML 1 ML VIAL IVP SCH (20:09)
[2023-09-28] MEDS: METOCLOPRAMIDE 5 MG/ML 2 ML VIAL IVP SCH (20:22)
[2023-09-28] MEDS: SIMETHICONE 40 MG/0.6 ML DROPS 2,000 MG/30 ML BOTTLE PO SCH (20:30)
[2023-09-28] MEDS: D5-0.45% NACL WITH KCL 20MEQ/L 1,000 ML IV SCH (20:30)
[2023-09-29 08:38] VITALS: RESP 16
[2023-09-29] MEDS: ENOXAPARIN 40 MG/0.4 ML SYRINGE SQ SCH (08:54)
[2023-09-29] MEDS: LORATADINE 10 MG TAB PO SCH (08:54)
[2023-09-29] MEDS: THYROID, PORK 30 MG TAB PO SCH (11:56)
[2023-09-29 15:08] VITALS: BP 100/64; PULSE 66; TEMP 98.1
--- NOTE | 2023-09-29 15:22 | P.DS ---
Providers Date of admission: 09/28/23 09:20 Expected date of discharge: 09/29/23 Attending physician: Danya Morton Primary care physician: Dolly Herndon MD Hospital Course: Discharge diagnosis 1. Gastroesophageal reflux disease. 2. Morbid obesity due to excess calories, BMI 44.6 Hospital course The patient is a 48-year-old female who presents with regurgitation, gastroesophageal reflux disease and a symptomatic diaphragmatic hiatal hernia. Patient is tolerating diet. Pain is controlled. She has been up and ambulating. She is having flatus. Denies any difficulty urinating. She is afebrile. She is stable for discharge. Physician Importer Exporter note has been reviewed by physician. Signing provider agrees with the documented findings, assessment, and plan of care. Patient Condition at Discharge: Stable Plan - Discharge Summary Discharge Rx Participant: Yes New Discharge Prescriptions: New bisacodyL [Dulcolax] 5 mg PO DAILY PRN #10 tab PRN Reason: Constipation Simethicone 40 mg/0.6 ml Drops [Mylicon Drops] 40 mg PO PCHS PRN #30 ml PRN Reason: Gas Acetaminophen Tab [Tylenol] 1,000 mg PO Q6HR PRN #30 tablet PRN Reason: Pain Ondansetron Odt [Zofran Odt] 4 mg PO Q8HR PRN #9 tab PRN Reason: Nausea Continue Sucralfate [Carafate] 1 gm PO BID Famotidine [Pepcid] 20 mg PO BID Cetirizine HCl [Zyrtec] 10 mg PO DAILY Aspirin EC [Ecotrin Low Dose] 81 mg PO DAILY Thyroid,Pork [Co Founder & Ceo Thyroid] 150 mg PO DAILY Docusate [Colace] 2 tab PO DAILY PRN PRN Reason: Constipation Lactulose [Cephulac] 20 gm PO DAILY PRN PRN Reason: Constipation Albuterol Inhaler [Ventolin Hfa Inhaler] 1 - 2 puff INHALATION Q6H PRN PRN Reason: Shortness Of Breath [place] Shield Estrogen Support 1 tab PO DAILY PRN PRN Reason: menopausal symptoms Discontinued Menofit 2 capsule PO DAILY Ibuprofen [Motrin] 600 mg PO BID Cholecalciferol (Vitamin D3) [Vitamin D3 (3000 Iu)] 10,000 unit PO DAILY Acetaminophen Tab [Tylenol] 500 mg PO BID Discharge Medication List Aspirin EC [Ecotrin Low Dose] 81 mg PO DAILY 05/27/23 [History] Cetirizine HCl [Zyrtec] 10 mg PO DAILY 05/27/23 [History] Docusate [Colace] 2 tab PO DAILY PRN 05/27/23 [History] Famotidine [Pepcid] 20 mg PO BID 05/27/23 [History] Sucralfate [Carafate] 1 gm PO BID 05/27/23 [History] Thyroid,Pork [Co Founder & Ceo Thyroid] 150 mg PO DAILY 05/27/23 [History] Albuterol Inhaler [Ventolin Hfa Inhaler] 1 - 2 puff INHALATION Q6H PRN 09/23/23 [History] [place] Shield Estrogen Support 1 tab PO DAILY PRN 09/23/23 [History] Lactulose [Cephulac] 20 gm PO DAILY PRN 09/23/23 [History] Acetaminophen Tab [Tylenol] 1,000 mg PO Q6HR PRN #30 tablet 09/29/23 [Rx] Ondansetron Odt [Zofran Odt] 4 mg PO Q8HR PRN #9 tab 09/29/23 [Rx] Simethicone 40 mg/0.6 ml Drops [Mylicon Drops] 40 mg PO PCHS PRN #30 ml 09/29/23 [Rx] bisacodyL [Dulcolax] 5 mg PO DAILY PRN #10 tab 09/29/23 [Rx] Follow up Appointment(s)/Referral(s): Danya Morton MD [STAFF PHYSICIAN] - 10/06/23 Activity/Diet/Wound Care/Special Instructions: Liquid diet only for 2 weeks No lifting over 4 pounds in 4 weeks, May shower No soaking in bath tubs for 2 weeks, Please notify your surgeon if you develop nausea and vomiting including new onset of abdominal pain. Please ambulate at all times. Use Simethicone, Gas-X, Tylenol scheduled for the next 24-48 hours for best pain relief. Use ice along incisions for the today to prevent swelling. Please open, cut, crush pills larger than the size of a tic tack No carbonated beverages. No straws. Do not remove scopolamine patch for 3 days, if present Avoiding Gas Avoid drinking through a straw. Do not chew gum or tobacco. These actions cause you to swallow air, which produces excess gas in your stomach. Chew with your mouth closed. Avoid any foods that cause stomach gas and distention. These foods include corn, dried beans, peas, lentils, onions, broccoli, cauliflower and any food from the cabbage family. Avoid carbonated drinks, alcohol, citrus and tomato products. Carbonated drinks (sodas) are not allowed for the first six to eight weeks after surgery. After this time you can try them again in small amounts Clear Liquid Diet The first diet after surgery is the clear liquid diet. It includes the following liquids: Apple juice Cranberry juice Grape juice Chicken broth Beef broth Flavored gelatin (Jell-O) Decaf tea and coffee Caffeinated beverages are permitted based on tolerance [facility] Full Liquid Diet The full liquid diet contains anything on the clear liquid diet, plus: Milk, soy, rice and almond (no chocolate) Cream of wheat, cream of rice, grits Strained creamed soups (no tomato or broccoli) Vanilla and strawberry-flavored ice cream Sherbet Blended, custard styled or whipped yogurt (plain or vanilla only) Vanilla and butterscotch pudding (no chocolate or coconut) Nutritional drinks including Ensure, Boost, Patriot Instant Breakfast (no chocolate-flavored) Note: Dairy products, such as milk, ice cream and pudding, may cause diarrhea in some people just after surgery. You may need to avoid milk products. If so, substitute them with lactose-free beverages, such as soy, rice, Lactaid or almond milks. Discharge Disposition: HOME SELF-CARE
[2023-09-29 15:41] VITALS: BMI 44.6
--- NOTE | 2023-09-29 16:27 | FL ---
EXAMINATION TYPE: FL esophagus cervic/pharynx DATE OF EXAM: 09/29/2023 12:25 PM CLINICAL INDICATION:Female, 48 years old with history of rule out leak/obstruction; COMPARISON: None TECHNIQUE: Limited single contrast UGI study is performed with Isovue-370. A total of 12 seconds of f luoroscopic time was utilized during procedure and 36 images obtained. DAP: 897.46 mGym2 FINDINGS: The stomach demonstrates a postsurgical morphology. No extravasation of contrast identifie d. No evidence of mass or ulcer disease. The duodenal bulb and sweep are unremarkable. IMPRESSION: Postsurgical changes without evidence of contrast extravasation.
== END 2023-09-29 16:05 | disposition home or self-care (01) | DRG 327 ==
LOC: 2ORMAIN 09:20 → 4SSUR 17:20
PROVIDERS: ADMIT Surgery Plastic and Reconstructive Surgery; ATTEND Surgery Plastic and Reconstructive Surgery
PROC: 0BUT4JZ Supplement Diaphragm with Synthetic Substitute, Percutaneous Endoscopic Approach (ICD-10-PCS; principal; 2023-09-28 11:35)
PROC: 8E0W4CZ Robotic Assisted Procedure of Trunk Region, Percutaneous Endoscopic Approach (ICD-10-PCS; principal; 2023-09-28 11:35)
PROC: 0DJ08ZZ Inspection of Upper Intestinal Tract, Via Natural or Artificial Opening Endoscopic (ICD-10-PCS; principal; 2023-09-28 11:35)
DX: K44.0 Diaphragmatic hernia with obstruction, without gangrene (principal); Z68.42 Body mass index [BMI] 45.0-49.9, adult; E66.01 Morbid (severe) obesity due to excess calories; K26.9 Duodenal ulcer, unspecified as acute or chronic, without hemorrhage or perforation; I11.9 Hypertensive heart disease without heart failure; Z79.1 Long term (current) use of non-steroidal anti-inflammatories (NSAID); J44.9 Chronic obstructive pulmonary disease, unspecified; E03.9 Hypothyroidism, unspecified; K21.00 Gastro-esophageal reflux disease with esophagitis, without bleeding; E78.5 Hyperlipidemia, unspecified; K29.50 Unspecified chronic gastritis without bleeding; K59.09 Other constipation; G89.29 Other chronic pain; M54.9 Dorsalgia, unspecified; M17.0 Bilateral primary osteoarthritis of knee; Z79.82 Long term (current) use of aspirin; Z79.890 Hormone replacement therapy; Z79.899 Other long term (current) drug therapy; Z98.84 Bariatric surgery status; Z91.040 Latex allergy status; Z71.3 Dietary counseling and surveillance; Z88.5 Allergy status to narcotic agent; Z88.0 Allergy status to penicillin; Z88.8 Allergy status to other drugs, medicaments and biological substances
CPT/HCPCS: 74210

== ENCOUNTER → 2023-10-21 | Outpatient (CLI) | payer MEDICAID ==
[2023-10-21 13:24] VITALS: BP 111/73; PULSE 67; TEMP 98.2; BMI 42.9
--- NOTE | 2023-10-21 14:07 | P.BASOAP ---
Subjective Progress Note Date: 10/21/23 She wants to go to work without restrictions and waiting for bypass. Objective - Vital Signs Vital signs: Vital Signs Temp 98.2 F 10/21/23 13:07 Pulse 67 10/21/23 13:07 Resp BP 111/73 10/21/23 13:07 Pulse Ox FiO2 Intake & Output 10/20/23 10/21/23 10/21/23 18:59 06:59 18:59 Weight 114.305 kg Assessment/Plan Plan: Date: 10/21/23 Initial Weight: Initial BMI: Current Weight: 114.305 kg Current BMI: 42.9 Type of Surgery: Total Volume in Band: Previous Volume: Volume Removed: Volume Added: Band Size:
--- NOTE | 2023-10-21 14:08 | P.PN ---
Progress Note - Text Progress Note Date: 10/21/23 To whom it may concern: Claudia Alonso is under my surgical care. She may return to work without restrictions, Thursday October 26, 2023. Regards, Danya Morton MD
== END ==
LOC: BARWHC3 12:36
PROVIDERS: ATTEND Surgery Plastic and Reconstructive Surgery
DX: E66.01 Morbid (severe) obesity due to excess calories (principal); Z53.9 Procedure and treatment not carried out, unspecified reason
CPT/HCPCS: 99211

== ENCOUNTER → 2024-01-20 | Outpatient (CLI) | payer MEDICAID ==
[2024-01-20 18:46] LABS: Basophils # (A) 0.05 X 10*3/uL (0.00-0.10); Basophils % (A) 1.5 %; Eosinophils # (A) 0.09 X 10*3/uL (0.04-0.35); Eosinophils % (A) 2.6 %; HCT 43.9 % (37.2-46.3); Lymphocytes # (A) 1.24 X 10*3/uL (0.90-5.00); Lymphocytes % (A) 36.2 %; MCH 28.5 pg (27.0-32.0); MCHC 31.9 g/dL (32.0-37.0); MCV 89.4 FL (80.0-97.0); Mean Platelet Volume 9.5 FL (9.5-12.2); Monocytes # (A) 0.37 X 10*3/uL (0.20-1.00); Monocytes % (A) 10.8 %; NRBC Per 100 WBC 0 X 10*3/uL (0.00-0.01); Neutrophils # (A) 1.67 X 10*3/uL (1.80-7.70); Neutrophils % (A) 48.6 %; Platelet Count 312 X 10*3/uL (140-440); RBC 4.91 X 10*6/uL (4.10-5.20); RDW 13.2 % (11.5-14.5); WBC 3.43 X 10*3/uL (4.50-10.00)
[2024-01-20 18:55] LABS: ALT 31 U/L (8-44); AST 25 U/L (13-35); Albumin 4.7 g/dL (3.8-4.9); Albumin/Globulin Ratio 1.62 Ratio (1.60-3.17); Alkaline Phosphatase 139 U/L (41-126); Blood Urea Nitrogen 22.4 mg/dL (9.0-27.0); Carbon Dioxide 24.5 mmol/L (21.6-31.8); Chloride 103 mmol/L (96-109); Globulin 2.9 g/dL (1.6-3.3); Glucose 101 mg/dL (70-110); Potassium 4.3 mmol/L (3.5-5.5); Sodium 140 mmol/L (135-145); Total Bilirubin 0.3 mg/dL (0.3-1.2); Total Protein 7.6 g/dL (6.2-8.2)
== END | disposition home or self-care (01) ==
LOC: LABPAT 11:58
PROVIDERS: ATTEND Surgery Plastic and Reconstructive Surgery
DX: Z01.812 Encounter for preprocedural laboratory examination (principal)
CPT/HCPCS: 36415; 80053; 85025

== ENCOUNTER 2024-02-01 06:27 | Inpatient (IN) | payer MEDICAID ==
[~2024-02-01 06:27] MED LIST changes: -LIDOCAINE 1% (10MG/ML) FOR IV START INTRADERMA PRN; -MIDAZOLAM 2 MG/2 ML VIAL IV PRN
[2024-02-01] MEDS: IV FLUID CONTINUATION 1,000 ML IV ONE (06:56)
[2024-02-01] MEDS: LACTATED RINGERS 1,000 ML IV SCH (06:56)
[2024-02-01] MEDS: ACETAMINOPHEN TAB 500 MG TAB PO PRN (07:06)
[2024-02-01] MEDS: ALVIMOPAN 12 MG CAPSULE PO PRN (07:06)
[2024-02-01] MEDS: DEXAMETHASONE SOD PHOSPHATE 4 MG/ML 1 ML VIAL IVP STA (07:09)
[2024-02-01] MEDS: ONDANSETRON 4 MG/2 ML VIAL IVP PRN (07:10)
[2024-02-01] MEDS: HEPARIN SODIUM,PORCINE 5,000 UNIT/ML 1 ML VIAL SQ PRN (07:12)
[2024-02-01] MEDS: SCOPOLAMINE 1 MG/72 HR PATCH TRANSDERM STA ×2 (07:22→16:20)
--- NOTE | 2024-02-01 07:34 | P.GSHP ---
History of Present Illness H&P Date: 02/01/24 CHIEF COMPLAINT: Morbid obesity HISTORY OF PRESENT ILLNESS: Claudia Alonso is a 48-year-old female who comes with lifelong morbid obesity. As result of morbid obesity, she has developed obstructive sleep apnea, osteoarthritis of the hips and knees. She has completed medical supervised weight loss. She completed medical including cardiac assessment. She has completed psychological risk assessment. All surgical options were reviewed. She elected for gastric bypass. At height of 5 feet 4 inches, her ideal body weight is 144 pounds. She comes in 249 pounds. Her body mass index is 37.8 She is 105 pounds overweight. Body mass index 42.8. PAST MEDICAL HISTORY: 1. Morbid obesity due to excess calories 2. Body mass index of 42.8 3. Osteoarthritis of the knees. 4. Osteoarthritis of the lower back. 5. Postop nausea vomiting 6. Gastroesophageal reflux disease 7. Asthma 8. Obstructive sleep apnea 9. Hypothyroidism PAST SURGICAL HISTORY: 1. Cholecystectomy 2. Hysterectomy 3. Upper endoscopy 4. Hiatal hernia repair HOME MEDICATIONS: Reviewed ALLERGIES: Reviewed SOCIAL HISTORY: No past tobacco use. FAMILY HISTORY: No family history of ulcerative colitis disease or Crohn's disease. Family history of morbid obesity. No lupus in the family. No reports of stomach or esophageal cancer. REVIEW OF ORGAN SYSTEMS: CONSTITUTIONAL: At height of 5 feet 4 inches, her ideal body weight is 144 pounds. She comes in 249 pounds. Her body mass index is 37.8 She is 105 pounds overweight. Body mass index 42.8. HEENT: Denies any active troubles with vision or hearing. ENDOCRINE: Denies diabetes. Has hypothyroidism. CARDIOVASCULAR: Past reports of palpitations or heart attacks or chest pain. RESPIRATORY: Has daytime somnolence. GASTROINTESTINAL: Denies any bright red blood per rectum. Has gastroesophageal reflux disease. MUSCULOSKELETAL: Has lower back pain and joint pain. Has osteoarthritis of the knees. NEURO: No headaches. No seizure disorders. PSYCH: Has depression. No suicidal ideation. RHEUMATOLOGIC: No lupus. No rheumatoid arthritis. HEMATOLOGIC: Denies any abnormal bleeding or bruising. No personal history of DVTs. SKIN: Has rash. No skin cancer. PHYSICAL EXAM: VITAL SIGNS: Height 5 foot 4 inches, weight 249 pounds. BMI 42.8 GENERAL: Well-developed in no acute distress. HEENT: No scleral icterus. Extraocular movements grossly intact. Hears conversational speech. No nasal drainage. NECK: Supple without lymphadenopathy. CHEST: Nonlabored respirations with equal bilateral excursions. CARDIOVASCULAR: Regular rate and regular rhythm. Distal 2+ pulses. ABDOMEN: Obese, soft, nontender, nondistended. MUSCULOSKELETAL: No clubbing, cyanosis. NEURO: No focal or lateralizing signs. Cranial nerves 2 through 12 grossly within normal limits. PSYCH: Appropriate affect. Alert and oriented to person, place and time. SKIN: Good skin turgor. Well perfused. ASSESSMENT: PAST MEDICAL HISTORY: 1. Morbid obesity due to excess calories 2. Body mass index of 42.8 3. Osteoarthritis of the knees. 4. Osteoarthritis of the lower back. 5. Postop nausea vomiting 6. Gastroesophageal reflux disease 7. Asthma 8. Obstructive sleep apnea 9. Hypothyroidism PLAN: 1. Bariatric options between a sleeve, band and a Maya-en-Y gastric bypass were reviewed in detail. The patient elected for a gastric bypass. Robotic assisted approach described. 2. The [place] [facility] Data was also reviewed with benefits and risks as described. 3. An 8 page second-generation bariatric consent form was reviewed in detail including potential of bleeding, infection, leaks, adequate weight loss, nutritional deficiencies which the patient demonstrated understanding of the risks. 4. A 2 week high-protein low caloric 800 kcal diet described to address hepatomegaly. 5. Preoperative labs including complete metabolic panel and CBC with type and screen recommended. 6. DVT prophylaxis per [place] [facility]. 7. Antibiotic prophylaxis. 8. Inpatient hospitalization anticipated for more than 2 nights. 9. All questions and concerns were addressed with the patient. 10. Overall, patient has expressed understanding of bariatric care including postoperative diet and commitment of lifestyle. Patient should benefit from surgical intervention for correction of her morbid obesity. 11. Weight loss on day of procedure down anticipated to 244 pounds. Past Medical History Past Medical History: COPD, GERD/Reflux, Hyperlipidemia, Thyroid Disorder Additional Past Medical History / Comment(s): hypothyroid, hx of palpitations. h as worn holter monitor. chronic back pain. paula decreased with hiatal hernia repair History of Any Multi-Drug Resistant Organisms: None Reported Past Surgical History: Cholecystectomy, Hernia Repair, Hysterectomy Additional Past Surgical History / Comment(s): laparoscopy,. hiatal hernia repair 09-28-23 Past Anesthesia/Blood Transfusion Reactions: Previous Problems w/ Anesthesia, Motion Sickness, Postoperative Nausea & Vomiting (PONV) Additional Past Anesthesia/Blood Transfusion Reaction / Comment(s): hypotension and gas pains after laparoscopy, nausea after cholecystectomy Smoking Status: Never smoker - Past Family History Father Family Medical History: CVA/TIA, Diabetes Mellitus, Hypertension Mother Family Medical History: Thyroid Disorder Additional Family Medical History / Comment(s): grandmother uterine and breast cancer Medications and Allergies Home Medications Medication Instructions Recorded Confirmed Type Aspirin EC [Ecotrin Low Dose] 81 mg PO DAILY 05/27/23 02/01/24 History Cetirizine HCl [Zyrtec] 10 mg PO HS 05/27/23 02/01/24 History Docusate [Colace] 2 tab PO DAILY PRN 05/27/23 02/01/24 History Thyroid,Pork [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 Thyroid] 150 mg PO DAILY 05/27/23 02/01/24 History Albuterol Inhaler [Ventolin Hfa 1 - 2 puff INHALATION Q6H PRN 09/23/23 02/01/24 History Inhaler] Lactulose [Cephulac] 20 gm PO DAILY PRN 09/23/23 02/01/24 History Cholecalciferol [Vitamin D3 (125 250 mcg PO DAILY 01/20/24 02/01/24 History Mcg = 5000 Iu)] Famotidine [Pepcid] 20 mg PO DAILY PRN 01/20/24 02/01/24 History Allergies Allergy/AdvReac Type Severity Reaction Status Date / Time adhesive tape Allergy Itching Verified 02/01/24 06:44 latex Allergy Dyspnea Verified 02/01/24 06:44 paroxetine [From Paxil] Allergy muscle Verified 02/01/24 06:44 tetany amoxicillin AdvReac not Verified 02/01/24 06:44 effective oxycodone [From OxyContin] AdvReac Nausea Verified 02/01/24 06:44 Surgical - Exam Vital Signs Temp Pulse Resp BP Pulse Ox 96.8 F L 67 16 131/62 95 02/01/24 06:48 02/01/24 06:48 02/01/24 06:48 02/01/24 06:48 02/01/24 06:48
--- NOTE | 2024-02-01 08:06 | P.HPADDEND ---
H&P Addendum H&P Addendum Date: 02/01/24 Patient reports not meeting goal due to pre-existing higher weight. Mother is at bedside. Due to risk of moderate pain with incisions, regional block requested. Additionally a TIVA for anesthesia to decrease for postop nausea vomiting described.
[2024-02-01] MEDS: MIDAZOLAM 2 MG/2 ML VIAL IVP ONE (08:10)
[2024-02-01] MEDS: fentaNYL (PF) 50 MCG/ML 2 ML AMP IVP ONE (08:11)
--- NOTE | 2024-02-01 08:30 | P.ANPRN ---
Procedure Note - Anesthesia - Nerve Block Performed Bilateral Erector Spinae Single Time Out Performed: Yes Date of Procedure: 02/01/24 Procedure Start Time: : Procedure Stop Time: :17 Location of Patient: PreOp Indication: Acute Post-Operative Pain, Requested by Surgeon Sedation Type: Sedate with meaningful contact maintained Preparation: Sterile Prep Position: Prone Needle Types: Pajunk Needle Gauge: 21 Ultrasound used to visualize needle placement: Yes Injectate: 0.5% Ropivacaine (see comment for volume) (20 ml + 10 ml NS + 4 mg Dexamethasone) Blood Aspirated: No Pain Paresthesia on Injection Noted: No Resistance on Injection: Normal Image Stored and Saved: Yes Events: Uneventful and Well Tolerated
[2024-02-01] MEDS ORDERED: KETAMINE HCL IN 0.9 % NACL 50 MG/5 ML SYRINGE ONE (08:57)
[2024-02-01] MEDS ORDERED: NEOSTIGMINE 1 MG/ML 10 ML VIAL ONE (08:57)
[2024-02-01] MEDS ORDERED: SODIUM CHLORIDE 0.9% (PF) 10 ML VIAL ONE (08:57)
[2024-02-01] MEDS ORDERED: DEXAMETHASONE SOD PHOSPHATE 4 MG/ML 1 ML VIAL ONE (08:57)
[2024-02-01] MEDS ORDERED: fentaNYL (PF) 50 MCG/ML 2 ML AMP ONE (08:57)
[2024-02-01] MEDS ORDERED: MIDAZOLAM 2 MG/2 ML VIAL ONE (08:57)
[2024-02-01] MEDS ORDERED: HYDROmorphone (PF) 1 MG/ML ONE (08:57)
[2024-02-01] MEDS ORDERED: SUCCINYLCHOLINE CHLORIDE 200 MG/10 ML VIAL IV ONE (08:57)
[2024-02-01] MEDS ORDERED: LIDOCAINE 1% INJ 10MG/ML (20 ML MDV) ONE (08:57)
[2024-02-01] MEDS ORDERED: PROPOFOL 10 MG/ML 20 ML VIAL IV ONE (08:57)
[2024-02-01] MEDS ORDERED: ROCURONIUM 10 MG/ML (5 ML VIAL) IV ONE (08:57)
[2024-02-01] MEDS ORDERED: GLYCOPYRROLATE 0.2 MG/ML 2 ML VIAL ONE (08:57)
[2024-02-01] MEDS ORDERED: LIDOCAINE 4% LTA KIT (4 ML) TOPICAL ONE (08:57)
[2024-02-01] MEDS ORDERED: ROPIVACAINE 5 MG/ML 30 ML VIAL ONE (08:57)
[2024-02-01] MEDS: LIDOCAINE 1%-EPI 1:100,000 20 ML VIAL SQ ONE (09:26)
[2024-02-01] MEDS: LACTATED RINGERS 1,000 ML IV ONE (10:59)
[2024-02-01] MEDS ORDERED: diphenhydrAMINE 50 MG/ML 1 ML VIAL IVP PRN (13:04)
[2024-02-01] MEDS ORDERED: NALOXONE 0.4 MG/ML 1 ML VIAL IV PRN (13:04)
[2024-02-01] MEDS ORDERED: HYDROmorphone 1 MG/ML 1 ML SYRINGE IVP PRN (13:04)
--- NOTE | 2024-02-01 13:13 | P.OP ---
Date of Procedure: 02/01/24 Description of Procedure: SURGEON: PAVITHRA FRANK MD PREOPERATIVE DIAGNOSES: 1. Morbid obesity due to excess calories 2. Body mass index of 42.8 3. Osteoarthritis of the knees. 4. Osteoarthritis of the lower back. 5. Postop nausea vomiting 6. Gastroesophageal reflux disease 7. Asthma 8. Obstructive sleep apnea 9. Hypothyroidism POSTOPERATIVE DIAGNOSES: 1. Morbid obesity due to excess calories 2. Body mass index of 42.8 3. Osteoarthritis of the knees. 4. Osteoarthritis of the lower back. 5. Postop nausea vomiting 6. Gastroesophageal reflux disease 7. Asthma 8. Obstructive sleep apnea 9. Hypothyroidism 10. Pelvic adhesions from previous Pfannenstiel incision OPERATION: 1. Robotic assisted da Meghan Xi laparoscopic lysis of adhesions 2. Robotic assisted da Meghan Xi laparoscopic Jamison-en-Y gastric bypass, 150 cm antecolic antegastric Jamison limb, with 25 mm EEA. 2. Intraoperative esophagogastrojejunoscopy. ANESTHESIA: GETA and local, regional block ESTIMATED BLOOD LOSS: 20 mL SPECIMENS REMOVED: None. COMPLICATIONS: NONE. Operative Findings: 1. Biliopancreatic limb 60 cm 2. Bypass performed using 150 cm jamison limb 3. Jejunojejunostomy and Junior's defects closed using 2-0 V-LOC, green 4. Leak test negative with gastrojejunal anastomosis patent and hemostatic. 5. Reinforcement sutures were placed along the gastrojejunal anastomosis at 3:00, 6:00 and 9:00 and 12:00. 6. Moderate pelvic adhesions from prior with internal hernias excised and lysed INDICATIONS: Claudia Alonso is a 48-year-old female who comes with lifelong morbid obesity. As result of morbid obesity, she has developed obstructive sleep apnea, osteoarthritis of the hips and knees. She has completed medical supervised weight loss. She completed medical including cardiac assessment. She has completed psychological risk assessment. All surgical options were reviewed. She elected for gastric bypass. At height of 5 feet 4 inches, her ideal body weight is 144 pounds. She comes in 249 pounds. Her body mass index is 37.8 She is 105 pounds overweight. Body mass index 42.8. A second-generation bariatric consent form was described in detail including the possibility of protein malnutrition, leaks, gastrojejunal stricture, venous thrombosis, need for further surgery for which she demonstrated understanding. Benefits and risks of the procedure were described at length. Informed consent was obtained. DESCRIPTION: The patient was brought into the operating room theater. She was placed supine. She had received heparin subcutaneously for DVT prophylaxis. Additionally Peridex oral solution as an oral decontaminant was placed per anesthesia. After general induction, the abdomen was prepped and draped in standard sterile fashion. Ioban draping was placed along the abdomen. Blanco catheter was avoided. A robotic da Meghan Xi system was prepped and primed. Incisions were proposed at 15 cm from the xiphoid. Proposed port sites were marked with indelible marker along the anterior axillary line bilaterally, mid clavicular line bilaterally with each port marked 10 cm from each other. The robotic stapler port was marked for the right midclavicular line including along the left midclavicular line. A 5 mm 0 degrees laparoscopic trocar entry was performed along the left upper quadrant. The abdomen was insufflated to 15 mmHg pressure, which she tolerated well. Diagnostic laparoscopy demonstrated no injury to bowel, viscera, or mesentery. The liver was consistent with her 2-week protein diet without hepatomegaly. Additionally, pelvic adhesions of omentum to the lower abdomen was found consistent from prior C-sections. An 8 mm camera port was placed left lateral to the umbilicus at the epigastrium, 15 cm distal to the xiphoid. Next, 12-mm robot stapler port was placed along the right mid abdomen. An 12 mm port was exchanged along the left upper quadrant. An 8 mm port was placed on the left lateral abdominal wall under direct visualization Please note that the ports were placed 18 to 20 cm away from the target anatomy of the stomach. Care was taken to check that each robotic arm was safely away from collision with the bed or the patient. At the epigastrium, a medium sized Behzad liver retractor was placed under di rect visualization with the Iron Tile And Marble Installer placed under the right shoulder of the patient. To address pelvic adhesions and omentum adherent to the lower abdomen, the robot was docked over the patient. Using grasper for arm 3, a grasper for arm 1, including vessel sealer for arm 4, the robotic system was docked and primed as described. Instruments were interchanged by the technical services assistant including endosc issors, vessel sealer. I had sat at the console. Attention was brought to the pelvis with vessel sealer was used to disconnect the omentum from the deep pelvis. Areas of internal hernia along the omentum was excised to prevent future bowel obstruction. Additional adhesions extending from the right and left pelvis and abdominal wall were taken down using vessel sealer. Instruments and the robot were redocked for the upper abdomen. The patient was repositioned in reverse Trendelenburg position at 25-degrees after lowering the bed. The robot was docked over the patient. Next, the transverse mesocolon was reflected into the upper abdomen for the jejunojejunostomy portion of the case. The ligament of Treitz was identified and measured 60 cm antegrade and marked using 3-0 Silk. The jejunum was divided at the 60 cm point using 60-mm below loads above the suture measurement. The biliopancreatic limb was held in place. The Jamison limb was measured 150 cm in an antegrade fashion. At 150 cm along the anti-mesenteric border of the Jamison limb, a jejunojejunostomy was proposed whereby enterotomies were created along the biliopancreatic limb including the Jamison limb using a Bovie cautery. A stay suture of 3-0 Slik was placed to align and create the anastomosis. The enterotomies along the anti- mesenteric borders were created followed by unidirectional fire from the patient's right side using 60 mm blue loads Smart technology robotic stapler. The jejunojejunostomy was found to be hemostatic. The enterotomy was closed after horizontal mattress stitch of 3-0 silk used to elevate the enterotomy followed by closure with the robotic stapler blue load. The jejunal limb was temporarily tacked along the left upper quadrant. Attention was now brought to the creation of the gastrojejunostomy. Along the lesser curvature of the stomach, dissection was made along the retrogastric space to allow first firing of the robotic staple. Total of two alicia of green loads and blue loads of 60 mm staplers were used to divide the stomach to create the gastric pouch. The patient was then prepared for placement of a Orvil. A 25-mm Orvil was selected for placement by the nurse truck technician. The Orvil tubing was placed anterior to the staple line of the gastric pouch and brought out through the left inferior lateral port. I re-scrubbed into the case. The robotic arms were temporarily undocked. The Orvil was then carefully and successfully navigated with the help of the nurse truck technician into the gastric pouch. The sutures were identified and divided. The tubing was from the 25 mm anvil. As the Orvil had been placed, the jejunal limb was brought proximally into the upper abdomen. No torsion was found upon the Jamison limb. No tension was identified as the limb was brought along the upper abdomen. The jejunal limb was previously opened using hook cautery. The 25-mm EEA stapler was brought through the left anterior lateral port site from the left side. The EEA stapler was brought through the open jejunal limb and its needle was deployed at the antimesenteric border where the anvil were mated for approximately 1 minute upon firing. The stapler was removed. Donuts were found to be intact and on both sides. The AccelOne Xi robot arms were then re-docked. I sat at the console. The open jejunal limb defect was closed using 60 mm blue loads after releasing any tension from the blind jejunal limb. No redundancy was present for jejunal limb. The transverse mesocolon was divided for the jamison limb. Reinforcement sutures were placed along the gastrojejunal anastomosis and placed along the 3:00, 6:00 and 9:00, 12:00 o'clock position using 3-0 Vicryl. The Junior and jejunojejunostomy mesenteric defect was closed using 2-0 V LOC, green. I then went to the head of the bed to perform the esophagogastrojejunoscopy and a leak test. An Olympus gastroscope was passed alongthe posterior oropharynx which was unremarkable for any injury to the vocal cords. The scope was passed down to the proximal portion of the pouch, whereby no active bleeding was encountered. Excellent visualization of the gastrojejunostomy anastomosis, including the Jamison limb was encountered with endoscopic image obtained. The anastomosis was found to be patent without active bleeding. Residual blood was suctioned from the gastric pouch. The gastrointestinal tract was desufflated. No evidence of intraoperative leak was encountered as the gastric pouch and anastomosis were submerged under normal saline solution. The robot was then undocked. I then went back to the bedside of the patient, whereby with coordinated effort of the technical services assistant, irrigation was aspirated from the upper abdominal cavity. Tisseel was placed circumferentially over the anastomosis of the gastrojejunostomy. The fascial defect of the EEA stapler was closed using Aubrey Ames and 0 Vicryl. All instruments and pneumoperitoneum were evacuated from the abdominal cavity. The port correlating with the EEA stapler device was cleansed with normal saline solution and hydrogen peroxide. The rest of incisions were reapproximated using 4-0 Monocryl in an interrupted subcuticular fashion. Local anesthetic was infiltrated along the skin for postop analgesia. Liquid glue was applied to the skin. OptiFoam dressing was placed along the EEA stapler site. At the end of the procedure, needle, sponge and instrument count had been verified correct by the failure analysis technician. The patient had tolerated the procedure well and was extubated and taken to the postanesthesia unit in stable condition.
[2024-02-01] MEDS ORDERED: HYDROmorphone 0.5 MG/0.5 ML SYRINGE IM PRN (15:12)
[2024-02-01] MEDS: HYDROmorphone 0.5 MG/0.5 ML SYRINGE IVP PRN (15:17)
[2024-02-01] MEDS: PANTOPRAZOLE 40 MG/10 ML VIAL IVP STA (16:20)
[2024-02-01] MEDS: CHLORHEXIDINE GLUCONATE 15 ML CUP MUCOUS MEM STA (16:20)
[2024-02-01] MEDS: HEPARIN SODIUM,PORCINE 5,000 UNIT/ML 1 ML VIAL SQ STA (16:20)
[2024-02-01] MEDS: droPERidol 5 MG/2 ML VIAL IVP ONE (16:21)
[2024-02-01] MEDS: ONDANSETRON 4 MG/2 ML VIAL IVP SCH (16:39)
[2024-02-01] MEDS: SODIUM CHLORIDE 0.9% 2,000 ML IV ONE (17:06)
[2024-02-01] MEDS: ALBUTEROL NEBULIZED 2.5 MG/3 ML INHALATION SCH (17:26)
[2024-02-01] MEDS: ACETAMINOPHEN IV (For NPO) 1,000 MG in EMPTY BAG 1 BAG IVPB SCH (17:34)
[2024-02-01] MEDS: SIMETHICONE 80 MG CHEWABLE PO SCH (17:35)
[2024-02-01] MEDS: ONDANSETRON 4 MG/2 ML VIAL IVP ONE (17:57)
[2024-02-01] MEDS: SCOPOLAMINE 1 MG/72 HR PATCH TRANSDERM ONE (17:58)
[2024-02-01] MEDS: DEXAMETHASONE SOD PHOSPHATE 4 MG/ML 1 ML VIAL IV ONE (17:58)
[2024-02-01] MEDS: fentaNYL PCA 500 MCG/50 ML BAG IV SCH (18:07)
[2024-02-01] MEDS: 0.9% NACL WITH KCL 20 MEQ/L 1,000 ML IV SCH (18:08)
[2024-02-01] MEDS: METOCLOPRAMIDE 5 MG/ML 2 ML VIAL IVP PRN (18:42)
[2024-02-01] MEDS: PANTOPRAZOLE 40 MG/10 ML VIAL IVP SCH (22:17)
[2024-02-02 04:53] LABS: African American GFR (CKD) >90 (>60 ml/min/1.73 sqM); Anion Gap 7 mmol/L; Blood Urea Nitrogen 8 mg/dL (7-17); Calcium 9.1 mg/dL (8.4-10.2); Carbon Dioxide 21 mmol/L (22-30); Chloride 109 mmol/L (98-107); Magnesium 1.7 mg/dL (1.6-2.3); Non-African American GFR(CKD) >90 (>60 ml/min/1.73 sqM); Potassium 3.9 mmol/L (3.5-5.1); Sodium 137 mmol/L (137-145)
[2024-02-02] MEDS: 0.9% NACL WITH KCL 20 MEQ/L 1,000 ML IV SCH (08:28)
[2024-02-02 08:40] LABS: Basophils # (A) 0.01 X 10*3/uL (0.00-0.10); Basophils % (A) 0.1 %; Eosinophils # (A) 0 X 10*3/uL (0.04-0.35); Eosinophils % (A) 0 %; HGB 12.7 g/dL (12.0-15.0); Lymphocytes # (A) 0.86 X 10*3/uL (0.90-5.00); Lymphocytes % (A) 9.9 %; MCH 29.3 pg (27.0-32.0); MCHC 33.4 g/dL (32.0-37.0); MCV 87.6 FL (80.0-97.0); Mean Platelet Volume 10.5 FL (9.5-12.2); Monocytes # (A) 1.09 X 10*3/uL (0.20-1.00); Monocytes % (A) 12.6 %; NRBC Per 100 WBC 0 X 10*3/uL (0.00-0.01); Neutrophils # (A) 6.68 X 10*3/uL (1.80-7.70); Neutrophils % (A) 77.2 %; Platelet Count 230 X 10*3/uL (140-440); RBC 4.34 X 10*6/uL (4.10-5.20); WBC 8.66 X 10*3/uL (4.50-10.00)
--- NOTE | 2024-02-02 11:42 | FL ---
SINGLE CONTRAST UPPER GI EXAMINATION: CLINICAL HISTORY: 48-year-old female postop bariatric surgery. Patient also status post hiatal herni a repair 5 months ago. TECHNIQUE: Single contrast exam performed with 30 mL Isovue-370 contrast. Total fluoroscopy time: 39 seconds Total images: 20. Total dose: 206.49 mGycm2. FINDINGS: The patient swallowed oral contrast without difficulty or delay. Esophageal peristalsis and motility are within normal limits. There is prompt passage of contrast from the esophagus into the stomach a nd subsequently across the gastrojejunostomy into proximal jejunal loops located in the left side of the abdomen. There is no evidence of contrast extravasation to suggest leak. No postsurgical free air is seen. Some strandy atelectasis noted at the left base. IMPRESSION: No evidence of leak or obstruction status post Maya-en-Y gastric bypass. Some postoperative atelectas is at the left base.
[2024-02-02 13:13] VITALS: BMI 42.7
--- NOTE | 2024-02-02 15:53 | P.PN ---
Subjective Progress Note Date: 02/02/24 CHIEF COMPLAINT: Morbid obesity HISTORY OF PRESENT ILLNESS: Patient is postop day #1 status post robotic lysis of adhesions and Maya-en-Y gastric bypass. Patient complains of sore throat and did have dry heaves and nausea during the night. She is tolerating her liquids but only taking in small amount. Afebrile. WBC 8.6 Hgb 12.7 platelets 230 sodium 137 potassium 3.9 creatinine 0.46 upper GI no evidence of leak or obstruction PHYSICAL EXAM: VITAL SIGNS: Reviewed GENERAL: Well-developed in no acute distress. HEENT: No sclera icterus. Extraocular movements grossly intact. Moist buccal mucosa. Head is atraumatic, normocephalic. Hears conversational speech. No nasal drainage. NECK: Supple without lymphadenopathy. CHEST: Non-labored respirations and equal bilateral excursions. CARDIOVASCULAR: Palpable 2+ radial pulses. ABDOMEN: Soft. Nondistended. MUSCULOSKELETAL: No clubbing or cyanosis. NEUROLOGIC: No focal or lateralizing signs. Cranial nerves II through XII grossly intact. PSYCH: Appropriate affect. Alert and oriented to person, place and time. SKIN: Well perfused. Good skin turgor. ASSESSMENT: 1. Morbid obesity due to excess calories 2. Body mass index of 42.8 3. Osteoarthritis of the knees. 4. Osteoarthritis of the lower back. 5. Postop nausea vomiting 6. Gastroesophageal reflux disease 7. Asthma 8. Obstructive sleep apnea 9. Hypothyroidism 10. Pelvic adhesions from previous Pfannenstiel incision PLAN: -Continue bariatric clear liquids -Continue IV fluids -Continue antiemetics -Continue pain management -Encourage patient to ambulate -Encourage patient to use incentive spirometer -DVT prophylaxis SCDs Physician Tram Operator note has been reviewed by physician. Signing provider agrees with the documented findings, assessment, and plan of care. As above. Please see additional documentation below Esophagram reviewed demonstrating no leak or obstruction. Overnight patient did have nausea which improved with Reglan. Magnesium low 1.7 which may contribute to chronic nausea. Otherwise rest of CBC and comprehensive metabolic panel wi thin normal limits. Recommend correct magnesium to 2.0 after 3 g magnesium infusion. Recommend fluid bolus 2 L normal saline to address dehydration and nausea. Disposition Home tomorrow for follow-up in the bariatric center in 72 hours. Objective - Vital Signs Vital signs: Vital Signs Temp 98.6 F 02/02/24 13:47 Pulse 57 L 02/02/24 13:47 Resp 17 02/02/24 13:47 BP 106/72 02/02/24 13:47 Pulse Ox 97 02/02/24 13:47 FiO2 Intake & Output 02/01/24 02/02/24 02/02/24 18:59 06:59 18:59 Intake Total 1850 Output Total 20 Balance 1830 Weight 113 kg 113 kg Intake: IV 1850 Output: Estimated Blood Loss 20 Other: # Voids 0 2 - Labs CBC & Chem 7: 02/02/24 04:42 02/02/24 03:43 Labs: Abnormal Lab Results - Last 24 Hours (Table) 02/02/24 02/02/24 Range/Units 03:43 04:42 Lymphocytes # 0.86 L (0.90-5.00) X 10*3/uL Monocytes # 1.09 H (0.20-1.00) X 10*3/uL Eosinophils # 0 L (0.04-0.35) X 10*3/uL Chloride 109 H (98-107) mmol/L Carbon Dioxide 21 L (22-30) mmol/L Creatinine 0.46 L (0.52-1.04) mg/dL
[2024-02-02] MEDS: MAGNESIUM SULFATE-D5W PMX 1 GM in DEXTROSE/WATER 1 100ML.BAG IVPB SCH (23:08)
--- NOTE | 2024-02-03 13:06 | P.DS ---
Providers Date of admission: 02/01/24 06:27 Expected date of discharge: 02/03/24 Attending physician: Danya Morton Consults: 02/01/24 07:51 Consult Physician Routine Consulting Provider: [facility] Consult Reason/Comments: TIVA for gastric bypass Do you want consulting provider notified?: Yes Primary care physician: Dolly Herndon MD Hospital Course: POSTOPERATIVE DIAGNOSES: 1. Morbid obesity due to excess calories 2. Body mass index of 42.8 3. Osteoarthritis of the knees. 4. Osteoarthritis of the lower back. 5. Postop nausea vomiting 6. Gastroesophageal reflux disease 7. Asthma 8. Obstructive sleep apnea 9. Hypothyroidism 10. Pelvic adhesions from previous Pfannenstiel incision COURSE: Claudia Alonso is a 48-year-old female who comes with lifelong morbid obesity. As result of morbid obesity, she has developed obstructive sleep apnea, osteoarthritis of the hips and knees. She has completed medical supervised weight loss. She completed medical including cardiac assessment. She has completed psychological risk assessment. All surgical options were reviewed. She elected for gastric bypass. Postoperatively, she was managed for nausea. She was given IV fluid boluses. Esophagram was negative for leak or obstruction. Patient had tolerating diet. She was ambulating. Pain was well- controlled. Prior to discharge, discharge instructions reviewed in detail. Patient has been stable for discharge. Follow-up with bariatric center in 48 to 72 hours described. Procedures: OPERATION: 1. Robotic assisted da Meghan Xi laparoscopic lysis of adhesions 2. Robotic assisted da Meghan Xi laparoscopic Jamison-en-Y gastric bypass, 150 cm antecolic antegastric Jamison limb, with 25 mm EEA. 2. Intraoperative esophagogastrojejunoscopy. ANESTHESIA: GETA and local, regional block ESTIMATED BLOOD LOSS: 20 mL SPECIMENS REMOVED: None. COMPLICATIONS: NONE. Operative Findings: 1. Biliopancreatic limb 60 cm 2. Bypass performed using 150 cm jamison limb 3. Jejunojejunostomy and Junior's defects closed using 2-0 V-LOC, green 4. Leak test negative with gastrojejunal anastomosis patent and hemostatic. 5. Reinforcement sutures were placed along the gastrojejunal anastomosis at 3:00, 6:00 and 9:00 and 12:00. 6. Moderate pelvic adhesions from prior with internal hernias excised and lysed Patient Condition at Discharge: Good Plan - Discharge Summary Discharge Rx Participant: Yes New Discharge Prescriptions: New bisacodyL [Dulcolax] 5 mg PO DAILY PRN #10 tab PRN Reason: Constipation Simethicone 40 mg/0.6 ml Drops [Mylicon Drops] 40 mg PO PCHS PRN #30 ml PRN Reason: Gas Acetaminophen Tab [Tylenol Tab] 1,000 mg PO Q6HR PRN #30 tablet PRN Reason: Pain Omeprazole [PriLOSEC] 40 mg PO DAILY #30 cap Ondansetron Odt [Zofran Odt] 4 mg PO Q8HR PRN #9 tab PRN Reason: Nausea Continue Cetirizine HCl [Zyrtec] 10 mg PO HS Aspirin EC [Ecotrin Low Dose] 81 mg PO DAILY Thyroid,Pork [Rail Car Painter/Sandblaster Thyroid] 150 mg PO DAILY Docusate [Colace] 2 tab PO DAILY PRN PRN Reason: Constipation Lactulose [Cephulac] 20 gm PO DAILY PRN PRN Reason: Constipation Albuterol Inhaler [Ventolin Hfa Inhaler] 1 - 2 puff INHALATION Q6H PRN PRN Reason: Shortness Of Breath Discontinued Cholecalciferol [Vitamin D3 (125 Mcg = 5000 Iu)] 250 mcg PO DAILY Famotidine [Pepcid] 20 mg PO DAILY PRN PRN Reason: GERD Discharge Medication List Aspirin EC [Ecotrin Low Dose] 81 mg PO DAILY 05/27/23 [History] Cetirizine HCl [Zyrtec] 10 mg PO HS 05/27/23 [History] Docusate [Colace] 2 tab PO DAILY PRN 05/27/23 [History] Thyroid,Pork [Rail Car Painter/Sandblaster Thyroid] 150 mg PO DAILY 05/27/23 [History] Albuterol Inhaler [Ventolin Hfa Inhaler] 1 - 2 puff INHALATION Q6H PRN 09/23/23 [History] Lactulose [Cephulac] 20 gm PO DAILY PRN 09/23/23 [History] Acetaminophen Tab [Tylenol Tab] 1,000 mg PO Q6HR PRN #30 tablet 02/03/24 [Rx] Omeprazole [PriLOSEC] 40 mg PO DAILY #30 cap 02/03/24 [Rx] Ondansetron Odt [Zofran Odt] 4 mg PO Q8HR PRN #9 tab 02/03/24 [Rx] Simethicone 40 mg/0.6 ml Drops [Mylicon Drops] 40 mg PO PCHS PRN #30 ml 02/03/24 [Rx] bisacodyL [Dulcolax] 5 mg PO DAILY PRN #10 tab 02/03/24 [Rx] [facility] [place] [facility] 9:00 am Patient Instructions/Handouts: Nutrition after Bariatric Surgery (DC), Jamison-en-Y Gastric Bypass (GEN) Activity/Diet/Wound Care/Special Instructions: Liquid diet only for 2 weeks until February 14December Shower. No soaking in bath tubs 2 weeks until February 14 Continue to use incentive spirometry to prevent pneumonias. Please continue to ambulate at home to prevent blood clots in legs. Please notify your surgeon if you develop nausea and vomiting including new onset of abdominal pain. No lifting over 4 pounds in 4 weeks, February 28 Drink 64 oz of fluid daily. Start protein shakes on . Notify bariatric center for temp over 101.0, increased pain, drainage from incisions. No straws or carbonated beverages. Liquid diet only. Sugar content should be less than 6 g to avoid dumping syndrome. Take MOM for constipation. CRUSH, OPEN, OR CUT TABLETS LARGER THAN A SIZE OF A TIC TAC Discharge Disposition: HOME SELF-CARE
[2024-02-03 13:57] VITALS: BP 115/79; PULSE 62; RESP 17; TEMP 98.4
== END 2024-02-03 14:48 | disposition home or self-care (01) | DRG 621 ==
LOC: 2ORMAIN 06:27 → 4SSUR 16:12
PROVIDERS: ADMIT Surgery Plastic and Reconstructive Surgery; ATTEND Surgery Plastic and Reconstructive Surgery
PROC: 8E0W4CZ Robotic Assisted Procedure of Trunk Region, Percutaneous Endoscopic Approach (ICD-10-PCS; principal; 2024-02-01 08:15)
PROC: 0D164ZA Bypass Stomach to Jejunum, Percutaneous Endoscopic Approach (ICD-10-PCS; principal; 2024-02-01 08:15)
PROC: 0DJ08ZZ Inspection of Upper Intestinal Tract, Via Natural or Artificial Opening Endoscopic (ICD-10-PCS; principal; 2024-02-01 08:15)
PROC: 0DQV4ZZ Repair Mesentery, Percutaneous Endoscopic Approach (ICD-10-PCS; principal; 2024-02-01 08:15)
DX: E66.01 Morbid (severe) obesity due to excess calories (principal); Z68.41 Body mass index [BMI] 40.0-44.9, adult; E03.9 Hypothyroidism, unspecified; J44.89 Other specified chronic obstructive pulmonary disease; E86.0 Dehydration; K91.0 Vomiting following gastrointestinal surgery; K66.0 Peritoneal adhesions (postprocedural) (postinfection); K46.9 Unspecified abdominal hernia without obstruction or gangrene; E78.5 Hyperlipidemia, unspecified; K21.9 Gastro-esophageal reflux disease without esophagitis; G47.33 Obstructive sleep apnea (adult) (pediatric); G89.29 Other chronic pain; M47.819 Spondylosis without myelopathy or radiculopathy, site unspecified; M17.0 Bilateral primary osteoarthritis of knee; M16.0 Bilateral primary osteoarthritis of hip; Z98.891 History of uterine scar from previous surgery; Z79.82 Long term (current) use of aspirin; Z79.890 Hormone replacement therapy; Z79.899 Other long term (current) drug therapy; Z71.3 Dietary counseling and surveillance; Z88.5 Allergy status to narcotic agent; Z88.0 Allergy status to penicillin; Z88.8 Allergy status to other drugs, medicaments and biological substances; Z91.040 Latex allergy status
CPT/HCPCS: 64999; 74240; 80051; 82310; 82565; 83735; 84100; 84520; 85025; 94640

== ENCOUNTER → 2024-04-08 | Outpatient (CLI) | payer MEDICAID ==
[2024-04-08 16:43] LABS: INR 1.06 sec (0.93-1.11); Partial Thromboplastin Time 31.6 sec (23.5-31.0); Prothrombin Time 11.4 sec (9.9-11.9)
[2024-04-08 16:44] LABS: HCT 40.2 % (37.2-46.3); HGB 13.2 g/dL (12.0-15.0); MCH 28.8 pg (27.0-32.0); MCHC 32.8 g/dL (32.0-37.0); MCV 87.8 FL (80.0-97.0); Mean Platelet Volume 10.6 FL (9.5-12.2); NRBC Per 100 WBC 0 X 10*3/uL (0.00-0.01); Platelet Count 232 X 10*3/uL (140-440); RBC 4.58 X 10*6/uL (4.10-5.20); WBC 2.66 X 10*3/uL (4.50-10.00)
[2024-04-08 20:12] LABS: Prealbumin 13.2 mg/dL (18.0-42.0)
[2024-04-08 20:55] LABS: % Iron Saturation 21.97 (12.00-45.00); Blood Urea Nitrogen 9.3 mg/dL (9.0-27.0); Chol/HDL Ratio 2.64 Ratio; Glucose 85 mg/dL (70-110); Iron 69 UG/DL (50-170); LDL Cholesterol,Calculated 62.1 mg/dL (0.0-131.0); Magnesium 1.7 mg/dL (1.5-2.4); Phosphorus 3.4 mg/dL (2.4-5.1); Total Iron Binding Capacity 314 UG/DL (228-460); VLDL Calculation 12.44 mg/dL (5.00-40.00)
[2024-04-08 20:56] LABS: ALT 32 U/L (8-44); AST 21 U/L (13-35); Albumin 4.3 g/dL (3.8-4.9); Albumin/Globulin Ratio 1.87 Ratio (1.60-3.17); Alkaline Phosphatase 99 U/L (41-126); Calcium 9.5 mg/dL (8.7-10.3); Chloride 107 mmol/L (96-109); Globulin 2.3 g/dL (1.6-3.3); Potassium 3.4 mmol/L (3.5-5.5); Sodium 143 mmol/L (135-145); Total Bilirubin 0.3 mg/dL (0.3-1.2); Total Protein 6.6 g/dL (6.2-8.2)
[2024-04-11 13:01] LABS: Zinc, Serum 113 ug/dL (60-130)
[2024-04-12 06:18] LABS: Vitamin A 34 ug/dL (38-106)
[2024-04-12 13:07] LABS: Vit B1(Thiamine) 49 ug/L (38-122)
[2024-04-14 22:41] LABS: Selenium 120 mcg/L (63-160)
== END | disposition home or self-care (01) ==
LOC: LABWHC1 12:11
PROVIDERS: ATTEND Surgery Plastic and Reconstructive Surgery
DX: E66.01 Morbid (severe) obesity due to excess calories (principal); K91.2 Postsurgical malabsorption, not elsewhere classified; E44.0 Moderate protein-calorie malnutrition; E45 Retarded development following protein-calorie malnutrition; E55.9 Vitamin D deficiency, unspecified; K74.1 Hepatic sclerosis; N19 Unspecified kidney failure; T56.894A Toxic effect of other metals, undetermined, initial encounter; K50.90 Crohn's disease, unspecified, without complications; D50.8 Other iron deficiency anemias
CPT/HCPCS: 36415; 80053; 80061; 82306; 82525; 82607; 82728; 82746; 83036; 83540; 83550; 83735; 83970; 84100; 84134; 84255; 84425; 84443; 84590; 84630; 85027; 85610; 85730

== ENCOUNTER → 2025-02-01 | Outpatient (CLI) | payer BC ==
[2025-02-01 13:09] VITALS: BP 107/72; PULSE 56; RESP 16; TEMP 98.4; BMI 26.4
--- NOTE | 2025-02-01 14:19 | P.BASOAP ---
Subjective Progress Note Date: 02/01/25 She lost 117 pounds. Lifetime. NO reflux. She has occasional abdominal. She has LUQ pain. She has trouble swallowing of the and recommend rigid. Has internal hernia due to weight loss. Outpatient. Recommend upper scope during. She has low WBC. 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 Objective - Vital Signs Vital signs: Vital Signs Temp 98.4 F 02/01/25 13:07 Pulse 56 L 02/01/25 13:07 Resp 16 02/01/25 13:07 BP 107/72 02/01/25 13:07 Pulse Ox FiO2 Intake & Output 01/31/25 02/01/25 02/01/25 18:59 06:59 18:59 Weight 70.307 kg Assessment/Plan Plan: Date: 02/01/25 Initial Weight: Initial BMI: Current Weight: 70.307 kg Current BMI: 26.4 Type of Surgery: Maya-en-Y Gastric Bypass Total Volume in Band: Previous Volume: Volume Removed: Volume Added: Band Size:
== END ==
LOC: BARWHC3 12:38
PROVIDERS: ATTEND Surgery Plastic and Reconstructive Surgery
DX: E66.01 Morbid (severe) obesity due to excess calories (principal); Z88.0 Allergy status to penicillin; Z88.2 Allergy status to sulfonamides; Z88.1 Allergy status to other antibiotic agents; Z88.8 Allergy status to other drugs, medicaments and biological substances; Z91.048 Other nonmedicinal substance allergy status; Z91.040 Latex allergy status; Z68.26 Body mass index [BMI] 26.0-26.9, adult
CPT/HCPCS: 99211